=== PATIENT | male | born 1940 | race Caucasian/White ===

== ENCOUNTER 2025-02-16 11:04 | Inpatient (IN) ==
--- NOTE | 2025-02-16 12:14 | XRay Report ---
XR chest 2V PA/lateral CLINICAL HISTORY: Dyspnea COMPARISON STUDY: 11/27/2024 FINDINGS: There are postsurgical changes of midline sternotomy. The heart remains enlarged. 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 There is no focal pulmonary consolid ation. There is slight improvement in interstitial thickening suggesting mild improvement in the prev iously identified interstitial edema. IMPRESSION: Mild improvement in the previously described mild congestive failure. No evidence of foc al pulmonary consolidation. ACT 112: Negative or not required by law. Electronically signed by: Rich Chau M.D. 02/16/2025 12:12 PM
[2025-02-16 12:34] LABS: Base Excess VBG 4.5 mEq/L; HCO3 VBG 29 mmol/L; Oxygen Saturation VBG 89.3 %; PCO2 VBG 43 mmHg (38-50); PO2 VBG 56 mmHg; pH VBG 7.44 (7.36-7.41)
[2025-02-16 12:39] LABS: Hematocrit (blood only) 27.0 % (42.0-52.0); Hemoglobin 8.5 g/dl (14.0-18.0); Mean Corpuscular Hemoglobin 28.4 pg (25.0-34.0); Mean Corpuscular Volume 90.3 fL (80.0-100.0); Platelet Count 293 K/uL (130-400); RDW Standard Deviation 47.8 fL (36.4-46.3); Red Blood Count 2.99 M/uL (4.70-6.10); White Blood Count 25.95 K/ul (4.8-10.8)
[2025-02-16 12:41] LABS: Chlamydia pneumoniae PCR Not Detected (NotDetected); Coronavirus 229E PCR Not Detected (NotDetected); Coronavirus CoV-2 (COVID19)PCR Not Detected (NotDetected); Coronavirus HKU1 PCR Not Detected (NotDetected); Coronavirus NL63 PCR Not Detected (NotDetected); Coronavirus OC43PCR Not Detected (NotDetected); Human Metapneumovirus PCR Not Detected (NotDetected); Parainfluenza Virus 1 PCR Not Detected (NotDetected); Parainfluenza Virus 2 PCR Not Detected (NotDetected); Parainfluenza Virus 3 PCR Not Detected (NotDetected); Parainfluenza Virus 4 PCR Not Detected (NotDetected); Respiratory Syncytial VirusPCR Not Detected (NotDetected); Rhinovirus/Enterovirus PCR Not Detected (NotDetected)
--- NOTE | 2025-02-16 12:53 | Emergency Department Note ---
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 Patient is accompanied by EMS and who provide additional history. Per EMS, the patient lives at home with his . He they were called to the house today for increased shortness of breath. Patient reports increased shortness of breath at rest that has been ongoing for the last few weeks. reported a fever today. It was reported that he received 1000 mg of Tylenol prior to arrival. Patient is anticoagulated with Xarelto. He has a history of heart failure. He wears 2 to 3 L of low-flow nasal cannula at baseline. notes that she has had to increase this over the weekend secondary to worsening dyspnea. They deny fever or chills. No cough or congestion. Denies chest pain or palpitations. No shortness of breath. They deny abdominal pain, nausea and vomiting. No urinary complaints. No recent changes in bowel movements. Patient denies recent changes in medications or OTC supplements. Patient offers no other complaints, today. ADDITIONAL HISTORY OBTAINED: Per HPI Chronic Medical/Social Conditions Affecting Care: Per HPI PAST MEDICAL HISTORY: See Below PAST SURGICAL HISTORY: See Below FAMILY HISTORY: See Below SOCIAL HISTORY: See Below HOME MEDICATIONS: See Below ALLERGIES: See Below VITALS: See Below PHYSICAL EXAMINATION: GENERAL: Sitting up in bed, alert, well appearing, well nourished, no distress, non-toxic EYE EXAM: normal conjunctiva. PERRL and EOM's grossly intact. OROPHARYNX: no exudate, no erythema, lips, buccal mucosa, and tongue normal and mucous membranes are moist NECK: supple, no nuchal rigidity, no adenopathy, non-tender LUNGS: Clear to auscultation. Normal chest wall mechanics HEART: no murmurs, regular rate, regular rhythm ABDOMEN: abdomen soft, non-tender, no masses, no rebound or guarding. BACK: Back is symmetrical on inspection and there is no deformity, no midline tenderness, no CVA tenderness. SKIN: no rashes and no bruising UPPER EXTREMITIES: upper extremities are grossly normal. LOWER EXTREMITIES: 1+ KENISHA NEURO EXAM: Normal sensorium, GCS 15, normal speech, no gross weakness of arms, no gross weakness of legs. MEDICAL DECISION MAKING: Differential diagnoses includes but not limited to ACS, unstable angina, dysrhythmia, PNA, hypervolemia/pulmonary edema, CHF exacerbation, COPD exacerbation, PE, pneumothorax, pericardial effusion, cardiac tamponade, anxiety/psychogenic, viral URI, sepsis, bacteremia, complicated UTI, electrolyte derangements, dehydration In summary, this is a 84 year old male who presented with SOB. Differential as above. Nursing notes and pertinent past medical records reviewed. Vital signs reviewed and the patient is afebrile hemodynamically stable. History and presentation revealed patient was recently admitted to [facility] after a procedure for complicated UTI. Does appear he was on IV ceftriaxone and transition to cefpodoxime as an outpatient. Patient has since finished antibiotics. reports that he continues to worsen. He has been more short of breath. He has had intermittent nausea and a few episodes of emesis. Did have a fever over the last 2 days. He has been weak and lethargic. I do suspect he likely has an infection but will need further investigation into potential etiologies of his shortness of breath. His low-flow nasal cannula does not appear new. This appears to be a chronic issue. Patient appears ill on my evaluation but overall he is doing okay. His blood pressures have been intermittently borderline hypotensive. His blood pressure runs low at baseline. He is mentating just fine. Patient is not tachycardic. He actually appears euvolemic to mildly hypervolemic. Will hold off on further IV fluid resuscitation at this time. Patient workup including labs and chest x-ray. Given the fever, I am concerned for sepsis and we will order septic workup. Suspect he could have a urinary source given recent treatment for pyelonephritis with continued symptoms. Diagnostics interpreted by me include EKG and cardiac monitoring as listed below: -Cardiac Monitoring: An order was placed for continuous cardiac monitoring. The monitor shows a rate of 70 (paced) with regular rhythm. -ECG: EKG independently interpreted by me reveals ventricular paced rhythm at [address] segment changes to suggest STEMI. Intervals within normal limits. Patient completed laboratory studies and imaging. Results independently interpreted by me are worsening leukocytosis and anemia. Kidney function has worsening. Pseudohyponatremia 2/2 hyperglycemia. No other significant electrolyte derangements. BNP elevated secondary to mild hypervolemia. Troponin leak present without symptoms of angina or EKG changes. The patient was managed with IV CTX has he has +UA and increased leukocytosis as well as worsening kidney fxn. Ultimately, the decision was made to admit the patient for Sepsis secondary to complicated UTI with worsening kidney dysfunction. I discussed the case with the hospitalist service via telephone/TigerText and they are agreeable to admit the patient to their services. Based on the above, including the patient's age, coexisting illnesses, labs, imaging, and exam findings the decision to treat as an inpatient. I discussed the patient with the hospitalist team who recommended admission to their services. They received the medications, treatments, interventions indicated above and their condition remained stable. I discussed my findings with the patient and their family and they understand and agree with the treatment plan. All patient / family questions were answered to their satisfaction. Consults/Care Managements Discussions: Per MDM ER treatment provided: See above Procedures:none Critical Care: None The chart was completed utilizing [employer] Speech voice recognition software. Grammatical errors, random word insertions, pronoun errors, and incomplete sentences are an occasional consequence of this system due to software limitations, ambient noise, and hardware issues. Any formal questions or concerns about the content, text, or information contained within the body of this dictation should be directly addressed to the physician for clarification. Past Med/Surg History Problem List (Updated 02/19/25 @ 19:17 by Jimmy Mcgovern DO) Pseudohyponatremia (Acute) Complicated urinary tract infection (Acute) Sepsis (Acute) Pulmonary interstitial fibrosis History of pacemaker E. coli UTI E coli bacteremia Chronic hypoxic respiratory failure, on home oxygen therapy Acute kidney injury (CT) with acute tubular necrosis (ATN) Severe sepsis with acute organ dysfunction due to Gram negative bacteria Pyelonephritis (Acute) HLD (hyperlipidemia) HTN (hypertension) CKD stage 3a, GFR 45-59 ml/min DM type 2 (diabetes mellitus, type 2) Chronic hypoxemic respiratory failure S/P cardiac pacemaker procedure Persistent atrial fibrillation Chronic HFrEF (heart failure with reduced ejection fraction) Severe sepsis Social History Smoking Status: Former smoker Tobacco Type: Cigarettes Hx Alcohol Use: No Hx Substance Use: No Preferred Language: Tongan Communication Ability: Effective Beliefs That Will Affect Care: [employer] Beliefs: [facility] Feels Safe at Home: Yes Assistive Devices: Oxygen - Continuous and Walker Allergies Allergies Allergy/AdvReac Type Severity Reaction Status Date / Time No Known Allergies Allergy Unknown Verified 01/23/07 15:09 Cephalosporins AdvReac Unknown N&V Verified 08/19/09 02:30 Home Meds Home Medications Medication Instructions Recorded Confirmed albuterol sulfate 90 mcg/actuation 2 puff inhalation Q6H PRN sob 02/16/25 02/16/25 aerosol inhaler buprenorphine 20 mcg/hour weekly 1 patch topical WK 02/16/25 02/16/25 transdermal patch duloxetine 60 mg capsule,delayed 60 mg PO DAILY 02/16/25 02/16/25 release ezetimibe 10 mg-simvastatin 40 mg 1 tab PO DAILY 02/16/25 02/16/25 tablet furosemide 40 mg tablet 40 mg PO DAILY 02/16/25 02/16/25 lorazepam 1 mg tablet 1 mg PO TID PRN anxiety 02/16/25 02/16/25 metformin 500 mg tablet,extended 1,000 mg PO DAILY 02/16/25 02/16/25 release 24 hr metoprolol succinate 25 mg 25 mg PO DAILY 02/16/25 02/16/25 tablet,extended release 24 hr nitroglycerin 0.4 mg sublingual 0.4 mg sublingual DIRECTED PRN 02/16/25 02/16/25 tablet Chest Pain omeprazole 40 mg capsule,delayed 40 mg PO BID 02/16/25 02/16/25 release rivaroxaban 20 mg tablet (Xarelto) 20 mg PO DAILY 02/16/25 02/16/25 sacubitril 24 mg-valsartan 26 mg 0 tab PO BID 02/16/25 02/16/25 tablet (Entresto) simvastatin 40 mg tablet 40 mg PO DAILY 02/16/25 02/16/25 tamsulosin 0.4 mg capsule 0.4 mg PO DAILY 02/16/25 02/16/25 aspirin 81 mg capsule 81 mg PO DAILY 02/17/25 02/17/25 Results & Data (ED) Vital Signs Vital Signs - 24 hr 02/16/25 11:09 02/16/25 11:11 02/16/25 11:13 Temperature 37.0 C Temperature Source Oral Pulse Rate 70 71 Pulse Rate [Apical] Pulse Rate from SpO2 Sensor Respiratory Rate 13 Respiratory Effort / Characteristics Non-Labored Spontaneous Respiratory Depth Normal Respiratory Pattern Regular Blood Pressure 116/56 L 116/56 L Blood Pressure [Right Arm] Blood Pressure Mean 99 76 Blood Pressure Mean [Right Arm] Blood Pressure Position Semi-fowlers Blood Pressure Position [Right Arm] Pulse Oximetry 97 Oxygen Delivery Method Nasal Cannula Oxygen Flow Rate 2 Sepsis Recent Fever Within 48 Hours Yes Sepsis New/Unexplained Change in Mental Status No Sepsis Action Taken by Nursing No Action Required 02/16/25 11:13 02/16/25 11:13 02/16/25 11:13 Temperature Temperature Source Pulse Rate Pulse Rate [Apical] Pulse Rate from SpO2 Sensor Respiratory Rate Respiratory Effort / Characteristics Respiratory Depth Respiratory Pattern Blood Pressure 86/53 L 86/53 L Blood Pressure [Right Arm] Blood Pressure Mean 59 59 Blood Pressure Mean [Right Arm] Blood Pressure Position Blood Pressure Position [Right Arm] Pulse Oximetry 98 Oxygen Delivery Method Nasal Cannula Oxygen Flow Rate 2 Sepsis Recent Fever Within 48 Hours Sepsis New/Unexplained Change in Mental Status Sepsis Action Taken by Nursing 02/16/25 11:13 02/16/25 11:15 02/16/25 11:17 Temperature Temperature Source Pulse Rate 70 Pulse Rate [Apical] Pulse Rate from SpO2 Sensor 70 Respiratory Rate 14 Respiratory Effort / Characteristics Respiratory Depth Respiratory Pattern Blood Pressure 86/53 L 108/69 Blood Pressure [Right Arm] Blood Pressure Mean 59 72 Blood Pressure Mean [Right Arm] Blood Pressure Position Blood Pressure Position [Right Arm] Pulse Oximetry 98 Oxygen Delivery Method Oxygen Flow Rate Sepsis Recent Fever Within 48 Hours Sepsis New/Unexplained Change in Mental Status Sepsis Action Taken by Nursing 02/16/25 11:21 02/16/25 11:21 02/16/25 11:21 Temperature Temperature Source Pulse Rate 70 70 Pulse Rate [Apical] 70 Pulse Rate from SpO2 Sensor 71 Respiratory Rate 12 16 21 Respiratory Effort / Characteristics Non-Labored Spontaneous Respiratory Depth Normal Respiratory Pattern Regular Blood Pressure Blood Pressure [Right Arm] 108/69 Blood Pressure Mean Blood Pressure Mean [Right Arm] 82 Blood Pressure Position Blood Pressure Position [Right Arm] Semi-fowlers Pulse Oximetry 98 98 98 Oxygen Delivery Method Nasal Cannula Nasal Cannula Oxygen Flow Rate 2 2 Sepsis Recent Fever Within 48 Hours Sepsis New/Unexplained Change in Mental Status Sepsis Action Taken by Nursing 02/16/25 12:02 02/16/25 12:02 02/16/25 12:03 Temperature Temperature Source Pulse Rate 70 Pulse Rate [Apical] Pulse Rate from SpO2 Sensor 70 Respiratory Rate 19 Respiratory Effort / Characteristics Respiratory Depth Respiratory Pattern Blood Pressure 106/51 L 106/51 L Blood Pressure [Right Arm] Blood Pressure Mean 88 88 Blood Pressure Mean [Right Arm] Blood Pressure Position Blood Pressure Position [Right Arm] Pulse Oximetry 100 Oxygen Delivery Method Oxygen Flow Rate Sepsis Recent Fever Within 48 Hours Sepsis New/Unexplained Change in Mental Status Sepsis Action Taken by Nursing 02/16/25 12:21 02/16/25 12:33 02/16/25 12:34 Temperature Temperature Source Pulse Rate 70 70 Pulse Rate [Apical] Pulse Rate from SpO2 Sensor 70 Respiratory Rate 16 19 Respiratory Effort / Characteristics Respiratory Depth Respiratory Pattern Blood Pressure 100/47 L Blood Pressure [Right Arm] Blood Pressure Mean 68 Blood Pressure Mean [Right Arm] Blood Pressure Position Blood Pressure Position [Right Arm] Pulse Oximetry 99 Oxygen Delivery Method Oxygen Flow Rate Sepsis Recent Fever Within 48 Hours Sepsis New/Unexplained Change in Mental Status Sepsis Action Taken by Nursing 02/16/25 12:45 02/16/25 12:51 02/16/25 13:00 Temperature Temperature Source Pulse Rate 70 70 Pulse Rate [Apical] Pulse Rate from SpO2 Sensor Respiratory Rate 18 18 Respiratory Effort / Characteristics Respiratory Depth Respiratory Pattern Blood Pressure 107/53 L Blood Pressure [Right Arm] Blood Pressure Mean 76 Blood Pressure Mean [Right Arm] Blood Pressure Position Blood Pressure Position [Right Arm] Pulse Oximetry Oxygen Delivery Method Oxygen Flow Rate Sepsis Recent Fever Within 48 Hours Sepsis New/Unexplained Change in Mental Status Sepsis Action Taken by Nursing 02/16/25 13:00 02/16/25 13:30 02/16/25 13:42 Temperature Temperature Source Pulse Rate 70 Pulse Rate [Apical] Pulse Rate from SpO2 Sensor Respiratory Rate 21 Respiratory Effort / Characteristics Respiratory Depth Respiratory Pattern Blood Pressure 107/53 L 126/68 Blood Pressure [Right Arm] Blood Pressure Mean 76 84 Blood Pressure Mean [Right Arm] Blood Pressure Position Blood Pressure Position [Right Arm] Pulse Oximetry Oxygen Delivery Method Oxygen Flow Rate Sepsis Recent Fever Within 48 Hours Sepsis New/Unexplained Change in Mental Status Sepsis Action Taken by Nursing 02/16/25 13:45 02/16/25 14:03 02/16/25 14:03 Temperature Temperature Source Pulse Rate 70 Pulse Rate [Apical] Pulse Rate from SpO2 Sensor Respiratory Rate 21 Respiratory Effort / Characteristics Respiratory Depth Respiratory Pattern Blood Pressure 132/62 132/62 Blood Pressure [Right Arm] Blood Pressure Mean 102 102 Blood Pressure Mean [Right Arm] Blood Pressure Position Blood Pressure Position [Right Arm] Pulse Oximetry Oxygen Delivery Method Oxygen Flow Rate Sepsis Recent Fever Within 48 Hours Sepsis New/Unexplained Change in Mental Status Sepsis Action Taken by Nursing 02/16/25 14:03 02/16/25 14:06 02/16/25 14:15 Temperature Temperature Source Pulse Rate 70 70 Pulse Rate [Apical] Pulse Rate from SpO2 Sensor Respiratory Rate 24 21 Respiratory Effort / Characteristics Respiratory Depth Respiratory Pattern Blood Pressure 132/62 Blood Pressure [Right Arm] Blood Pressure Mean 102 Blood Pressure Mean [Right Arm] Blood Pressure Position Blood Pressure Position [Right Arm] Pulse Oximetry Oxygen Delivery Method Oxygen Flow Rate Sepsis Recent Fever Within 48 Hours Sepsis New/Unexplained Change in Mental Status Sepsis Action Taken by Nursing 02/16/25 14:27 02/16/25 14:30 02/16/25 15:01 Temperature Temperature Source Pulse Rate 70 Pulse Rate [Apical] 70 Pulse Rate from SpO2 Sensor Respiratory Rate 14 16 Respiratory Effort / Characteristics Non-Labored Spontaneous Non-Labored Spontaneous Respiratory Depth Normal Respiratory Pattern Regular Blood Pressure Blood Pressure [Right Arm] 133/60 Blood Pressure Mean Blood Pressure Mean [Right Arm] 84 Blood Pressure Position Blood Pressure Position [Right Arm] Semi-fowlers Pulse Oximetry Oxygen Delivery Method Nasal Cannula Oxygen Flow Rate 3 Sepsis Recent Fever Within 48 Hours Sepsis New/Unexplained Change in Mental Status Sepsis Action Taken by Nursing Laboratory Data 02/19/25 06:42 02/19/25 06:42 Lab Results 02/16/25 02/16/25 02/16/25 Range/Units 11:28 12:20 14:00 WBC 25.95 H (4.8-10.8) K/ul RBC 2.99 L (4.70-6.10) M/uL Hgb 8.5 L (14.0-18.0) g/dl Hct 27.0 L (42.0-52.0) % MCV 90.3 (80.0-100.0) fL MCH 28.4 (25.0-34.0) pg MCHC 31.5 L (32.0-36.0) g/dL RDW Std Deviation 47.8 H (36.4-46.3) fL RDW Coeff of Aimee 14.6 H (11.5-14.5) % Plt Count 293 (130-400) K/uL MPV 10.6 (9.4-12.4) fL Immature Gran % (Auto) 0.9 % Neut % (Auto) 87.2 % Lymph % (Auto) 3.4 % [place] % (Auto) 8.1 % Eos % (Auto) 0.1 % Baso % (Auto) 0.3 % Neut # (Auto) 22.61 H (1.40-6.50) K/uL Lymph # (Auto) 0.89 L (1.20-3.40) K/uL [place] # (Auto) 2.11 H (0.11-0.59) K/uL Eos # (Auto) 0.02 (0.00-0.50) K/uL Baso # (Auto) 0.08 (0.00-0.20) K/uL Immature Gran # (Auto) 0.24 H (0.01-0.20) K/uL Toxic Vacuolation 1+ Polychromasia 1+ Basophilic Stippling 1+ PT Cancelled INR Cancelled VBG pH 7.44 H (7.36-7.41) VBG pCO2 43 (38-50) mmHg VBG pO2 56 mmHg VBG HCO3 29 mmol/L VBG O2 Saturation 89.3 % VBG Base Excess 4.5 mEq/L Sodium 134 L (136-145) mmol/L Potassium 4.7 (3.5-5.1) mmol/L Chloride 99 (98-107) mmol/L Carbon Dioxide 29 (21-32) mmol/L Anion Gap 6 (3-11) BUN 27 H (6-23) mg/dl Creatinine 1.81 H (0.6-1.4) mg/dl Est Cr Clr Drug Dosing 31.7 ml/min eGFR 36.87 BUN/Creatinine Ratio 14.9 (10-20) Glucose 161 H (70-99(Fasting)) mg/dl Calcium 9.1 (8.6-10.3) mg/dl Magnesium 1.6 L (1.7-2.4) mg/dl Total Bilirubin 0.6 (0.2-1.0) mg/dl AST 22 (13-39) U/L ALT 12 (7-52) U/L Alkaline Phosphatase 34 (34-104) U/L Troponin I High Sens 33.9 H (0-20) pg/ml B-Natriuretic Peptide 636 H (0-100) pg/ml Total Protein 6.3 (6.0-8.3) gm/dl Albumin 3.4 (3.4-5.0) gm/dl Globulin 2.9 (2.5-4.0) gm/dl Albumin/Globulin Ratio 1.2 (0.9-2) Urine Color Yellow Urine Appearance Turbid A (Clear) Urine pH 7.5 (4.5-7.5) Ur Specific [place] 1.038 H (1.000-1.030) Urine Protein 2+ H (Negative) Urine Glucose (UA) Negative (Negative) Urine Ketones Trace H (Negative) Urine Blood 3+ H (Negative) Urine Nitrite Positive A (Negative) Urine Bilirubin Negative (Negative) Urine Urobilinogen Negative (Negative) Ur Leukocyte Esterase 3+ H (Negative) Urine WBC (Auto) >50 H (0-5) /hpf Urine RBC (Auto) >20 H (0-2) /hpf U Hyaline Cast (Auto) 6-10 H (0-2) /lpf U Epithel Cells (Auto) 0-2 (0-2) /hpf Urine Bacteria (Auto) 4+ H (None Seen) Urine Comment A.calcoaceticus-baumannii cmplx PCR Adenovirus (PCR) Not Detected (NotDetected) Bacteroides fragilis B. pertussis DNA (PCR) Not Detected (NotDetected) B.parapertussis DNA PCR Not Detected (NotDetected) Teagan albicans (PCR) Teagan auris (PCR) C. glabrata (PCR) C. krusei (PCR) C. parapsilosis (PCR) C. tropicalis (PCR) C. pneumoniae DNA (PCR) Not Detected (NotDetected) Coronavirus OC43 (PCR) Not Detected (NotDetected) Coronavirus HKU1 (PCR) Not Detected (NotDetected) Coronavirus 229E (PCR) Not Detected (NotDetected) SARS-CoV-2 (PCR) Not Detected (NotDetected) Coronavirus NL63 (PCR) Not Detected (NotDetected) C. neoform/gattii (PCR) Enterobacterales (PCR) (NotDetected) E. cloacae complex PCR Enterococc faecalis PCR Enterococc faecium PCR E. coli (PCR) H. influenzae (PCR) Human Metapneumovir PCR Not Detected (NotDetected) Influenza Type A (PCR) Not Detected (NotDetected) Influenza Type B (PCR) Not Detected (NotDetected) Klebsiella aerogenes (PCR) Klebsiella oxytoca PCR K. pneumoniae group (PCR) List. monocytogenes PCR M. pneumoniae (PCR) Not Detected (NotDetected) N. meningitidis (PCR) Parainfluenza 1 (PCR) Not Detected (NotDetected) Parainfluenza 2 (PCR) Not Detected (NotDetected) Parainfluenza 3 (PCR) Not Detected (NotDetected) Parainfluenza 4 (PCR) Not Detected (NotDetected) Proteus species (PCR) (NotDetected) RSV (PCR) Not Detected (NotDetected) Entero/Rhino (PCR) Not Detected (NotDetected) Salmonella spp. (PCR) Serratia marcescens PCR Staphylococcus sp PCR Staph aureus (PCR) mecA/C & MREJ Resist Gene mecA/C-Methicil Resis Gene mcr-1 Colistin Res Gene PCR Staph epidermidis (PCR) Staph lugdunensis PCR S. maltophilia (PCR) Streptococcus sp PCR Strep agalactiae (PCR) Strep pneumoniae (PCR) S. pyogenes (PCR) P. aeruginosa (PCR) Joanie/B-Vanco Res Genes blaIMP Car res Gene PCR (NotDetected) KPC-Carbap Res Gene PCR (NotDetected) blaNDM Car Res Gene PCR (NotDetected) OXA-48 Carbapenem Resis Gene (PCR) (NotDetected) blaVIM Car Res Gene PCR (NotDetected) CTX-M Gene Resistance (PCR) (NotDetected) Bld Cult ID Panel PCR (NotDetected) Bld Cult ID PCR Com 02/16/25 02/16/25 02/16/25 Range/Units 14:15 14:15 14:15 WBC (4.8-10.8) K/ul RBC (4.70-6.10) M/uL Hgb (14.0-18.0) g/dl Hct (42.0-52.0) % MCV (80.0-100.0) fL MCH (25.0-34.0) pg MCHC (32.0-36.0) g/dL RDW Std Deviation (36.4-46.3) fL RDW Coeff of Aimee (11.5-14.5) % Plt Count (130-400) K/uL MPV (9.4-12.4) fL Immature Gran % (Auto) % Neut % (Auto) % Lymph % (Auto) % [place] % (Auto) % Eos % (Auto) % Baso % (Auto) % Neut # (Auto) (1.40-6.50) K/uL Lymph # (Auto) (1.20-3.40) K/uL [place] # (Auto) (0.11-0.59) K/uL Eos # (Auto) (0.00-0.50) K/uL Baso # (Auto) (0.00-0.20) K/uL Immature Gran # (Auto) (0.01-0.20) K/uL Toxic Vacuolation Polychromasia Basophilic Stippling PT 16.0 H INR 1.5 H VBG pH (7.36-7.41) VBG pCO2 (38-50) mmHg VBG pO2 mmHg VBG HCO3 mmol/L VBG O2 Saturation % VBG Base Excess mEq/L Sodium (136-145) mmol/L Potassium (3.5-5.1) mmol/L Chloride (98-107) mmol/L Carbon Dioxide (21-32) mmol/L Anion Gap (3-11) BUN (6-23) mg/dl Creatinine (0.6-1.4) mg/dl Est Cr Clr Drug Dosing ml/min eGFR BUN/Creatinine Ratio (10-20) Glucose (70-99(Fasting)) mg/dl Calcium (8.6-10.3) mg/dl Magnesium (1.7-2.4) mg/dl Total Bilirubin (0.2-1.0) mg/dl AST (13-39) U/L ALT (7-52) U/L Alkaline Phosphatase (34-104) U/L Troponin I High Sens 39.2 H (0-20) pg/ml B-Natriuretic Peptide (0-100) pg/ml Total Protein (6.0-8.3) gm/dl Albumin (3.4-5.0) gm/dl Globulin (2.5-4.0) gm/dl Albumin/Globulin Ratio (0.9-2) Urine Color Urine Appearance (Clear) Urine pH (4.5-7.5) Ur Specific [place] (1.000-1.030) Urine Protein (Negative) Urine Glucose (UA) (Negative) Urine Ketones (Negative) Urine Blood (Negative) Urine Nitrite (Negative) Urine Bilirubin (Negative) Urine Urobilinogen (Negative) Ur Leukocyte Esterase (Negative) Urine WBC (Auto) (0-5) /hpf Urine RBC (Auto) (0-2) /hpf U Hyaline Cast (Auto) (0-2) /lpf U Epithel Cells (Auto) (0-2) /hpf Urine Bacteria (Auto) (None Seen) Urine Comment A.calcoaceticus-baumannii cmplx PCR Cancelled Adenovirus (PCR) (NotDetected) Bacteroides fragilis Cancelled B. pertussis DNA (PCR) (NotDetected) B.parapertussis DNA PCR (NotDetected) Teagan albicans (PCR) Cancelled Teagan auris (PCR) Cancelled C. glabrata (PCR) Cancelled C. krusei (PCR) Cancelled C. parapsilosis (PCR) Cancelled C. tropicalis (PCR) Cancelled C. pneumoniae DNA (PCR) (NotDetected) Coronavirus OC43 (PCR) (NotDetected) Coronavirus HKU1 (PCR) (NotDetected) Coronavirus 229E (PCR) (NotDetected) SARS-CoV-2 (PCR) (NotDetected) Coronavirus NL63 (PCR) (NotDetected) C. neoform/gattii (PCR) Cancelled Enterobacterales (PCR) DETECTED A Cancelled (NotDetected) E. cloacae complex PCR Cancelled Enterococc faecalis PCR Cancelled Enterococc faecium PCR Cancelled E. coli (PCR) Cancelled H. influenzae (PCR) Cancelled Human Metapneumovir PCR (NotDetected) Influenza Type A (PCR) (NotDetected) Influenza Type B (PCR) (NotDetected) Klebsiella aerogenes (PCR) Cancelled Klebsiella oxytoca PCR Cancelled K. pneumoniae group (PCR) Cancelled List. monocytogenes PCR Cancelled M. pneumoniae (PCR) (NotDetected) N. meningitidis (PCR) Cancelled Parainfluenza 1 (PCR) (NotDetected) Parainfluenza 2 (PCR) (NotDetected) Parainfluenza 3 (PCR) (NotDetected) Parainfluenza 4 (PCR) (NotDetected) Proteus species (PCR) DETECTED A Cancelled (NotDetected) RSV (PCR) (NotDetected) Entero/Rhino (PCR) (NotDetected) Salmonella spp. (PCR) Cancelled Serratia marcescens PCR Cancelled Staphylococcus sp PCR Cancelled Staph aureus (PCR) Cancelled mecA/C & MREJ Resist Gene Cancelled mecA/C-Methicil Resis Gene Cancelled mcr-1 Colistin Res Gene PCR Cancelled Staph epidermidis (PCR) Cancelled Staph lugdunensis PCR Cancelled S. maltophilia (PCR) Cancelled Streptococcus sp PCR Cancelled Strep agalactiae (PCR) Cancelled Strep pneumoniae (PCR) Cancelled S. pyogenes (PCR) Cancelled P. aeruginosa (PCR) Cancelled Joanie/B-Vanco Res Genes Cancelled blaIMP Car res Gene PCR Not Detected (NotDetected) KPC-Carbap Res Gene PCR (NotDetected) blaNDM Car Res Gene PCR (NotDetected) OXA-48 Carbapenem Resis Gene (PCR) (NotDetected) blaVIM Car Res Gene PCR (NotDetected) CTX-M Gene Resistance (PCR) (NotDetected) Bld Cult ID Panel PCR (NotDetected) Bld Cult ID PCR Com 02/16/25 02/16/25 02/16/25 Range/Units 14:15 14:15 14:15 WBC (4.8-10.8) K/ul RBC (4.70-6.10) M/uL Hgb (14.0-18.0) g/dl Hct (42.0-52.0) % MCV (80.0-100.0) fL MCH (25.0-34.0) pg MCHC (32.0-36.0) g/dL RDW Std Deviation (36.4-46.3) fL RDW Coeff of Aimee (11.5-14.5) % Plt Count (130-400) K/uL MPV (9.4-12.4) fL Immature Gran % (Auto) % Neut % (Auto) % Lymph % (Auto) % [place] % (Auto) % Eos % (Auto) % Baso % (Auto) % Neut # (Auto) (1.40-6.50) K/uL Lymph # (Auto) (1.20-3.40) K/uL [place] # (Auto) (0.11-0.59) K/uL Eos # (Auto) (0.00-0.50) K/uL Baso # (Auto) (0.00-0.20) K/uL Immature Gran # (Auto) (0.01-0.20) K/uL Toxic Vacuolation Polychromasia Basophilic Stippling PT INR VBG pH (7.36-7.41) VBG pCO2 (38-50) mmHg VBG pO2 mmHg VBG HCO3 mmol/L VBG O2 Saturation % VBG Base Excess mEq/L Sodium (136-145) mmol/L Potassium (3.5-5.1) mmol/L Chloride (98-107) mmol/L Carbon Dioxide (21-32) mmol/L Anion Gap (3-11) BUN (6-23) mg/dl Creatinine (0.6-1.4) mg/dl Est Cr Clr Drug Dosing ml/min eGFR BUN/Creatinine Ratio (10-20) Glucose (70-99(Fasting)) mg/dl Calcium (8.6-10.3) mg/dl Magnesium (1.7-2.4) mg/dl Total Bilirubin (0.2-1.0) mg/dl AST (13-39) U/L ALT (7-52) U/L Alkaline Phosphatase (34-104) U/L Troponin I High Sens (0-20) pg/ml B-Natriuretic Peptide (0-100) pg/ml Total Protein (6.0-8.3) gm/dl Albumin (3.4-5.0) gm/dl Globulin (2.5-4.0) gm/dl Albumin/Globulin Ratio (0.9-2) Urine Color Urine Appearance (Clear) Urine pH (4.5-7.5) Ur Specific Daggett (1.000-1.030) Urine Protein (Negative) Urine Glucose (UA) (Negative) Urine Ketones (Negative) Urine Blood (Negative) Urine Nitrite (Negative) Urine Bilirubin (Negative) Urine Urobilinogen (Negative) Ur Leukocyte Esterase (Negative) Urine WBC (Auto) (0-5) /hpf Urine RBC (Auto) (0-2) /hpf U Hyaline Cast (Auto) (0-2) /lpf U Epithel Cells (Auto) (0-2) /hpf Urine Bacteria (Auto) (None Seen) Urine Comment A.calcoaceticus-baumannii cmplx PCR Adenovirus (PCR) (NotDetected) Bacteroides fragilis B. pertussis DNA (PCR) (NotDetected) B.parapertussis DNA PCR (NotDetected) Teagan albicans (PCR) Teagan auris (PCR) C. glabrata (PCR) C. krusei (PCR) C. parapsilosis (PCR) C. tropicalis (PCR) C. pneumoniae DNA (PCR) (NotDetected) Coronavirus OC43 (PCR) (NotDetected) Coronavirus HKU1 (PCR) (NotDetected) Coronavirus 229E (PCR) (NotDetected) SARS-CoV-2 (PCR) (NotDetected) Coronavirus NL63 (PCR) (NotDetected) C. neoform/gattii (PCR) Enterobacterales (PCR) (NotDetected) E. cloacae complex PCR Enterococc faecalis PCR Enterococc faecium PCR E. coli (PCR) H. influenzae (PCR) Human Metapneumovir PCR (NotDetected) Influenza Type A (PCR) (NotDetected) Influenza Type B (PCR) (NotDetected) Klebsiella aerogenes (PCR) Klebsiella oxytoca PCR K. pneumoniae group (PCR) List. monocytogenes PCR M. pneumoniae (PCR) (NotDetected) N. meningitidis (PCR) Parainfluenza 1 (PCR) (NotDetected) Parainfluenza 2 (PCR) (NotDetected) Parainfluenza 3 (PCR) (NotDetected) Parainfluenza 4 (PCR) (NotDetected) Proteus species (PCR) (NotDetected) RSV (PCR) (NotDetected) Entero/Rhino (PCR) (NotDetected) Salmonella spp. (PCR) Serratia marcescens PCR Staphylococcus sp PCR Staph aureus (PCR) mecA/C & MREJ Resist Gene mecA/C-Methicil Resis Gene mcr-1 Colistin Res Gene PCR Staph epidermidis (PCR) Staph lugdunensis PCR S. maltophilia (PCR) Streptococcus sp PCR Strep agalactiae (PCR) Strep pneumoniae (PCR) S. pyogenes (PCR) P. aeruginosa (PCR) Joanie/B-Vanco Res Genes blaIMP Car res Gene PCR Cancelled (NotDetected) KPC-Carbap Res Gene PCR Not Detected Cancelled (NotDetected) blaNDM Car Res Gene PCR Not Detected Cancelled (NotDetected) OXA-48 Carbapenem Resis Gene (PCR) Not Detected (NotDetected) blaVIM Car Res Gene PCR (NotDetected) CTX-M Gene Resistance (PCR) (NotDetected) Bld Cult ID Panel PCR (NotDetected) Bld Cult ID PCR Com 02/16/25 02/16/25 02/16/25 Range/Units 14:15 14:15 14:15 WBC (4.8-10.8) K/ul RBC (4.70-6.10) M/uL Hgb (14.0-18.0) g/dl Hct (42.0-52.0) % MCV (80.0-100.0) fL MCH (25.0-34.0) pg MCHC (32.0-36.0) g/dL RDW Std Deviation (36.4-46.3) fL RDW Coeff of Aimee (11.5-14.5) % Plt Count (130-400) K/uL MPV (9.4-12.4) fL Immature Gran % (Auto) % Neut % (Auto) % Lymph % (Auto) % [place] % (Auto) % Eos % (Auto) % Baso % (Auto) % Neut # (Auto) (1.40-6.50) K/uL Lymph # (Auto) (1.20-3.40) K/uL [place] # (Auto) (0.11-0.59) K/uL Eos # (Auto) (0.00-0.50) K/uL Baso # (Auto) (0.00-0.20) K/uL Immature Gran # (Auto) (0.01-0.20) K/uL Toxic Vacuolation Polychromasia Basophilic Stippling PT INR VBG pH (7.36-7.41) VBG pCO2 (38-50) mmHg VBG pO2 mmHg VBG HCO3 mmol/L VBG O2 Saturation % VBG Base Excess mEq/L Sodium (136-145) mmol/L Potassium (3.5-5.1) mmol/L Chloride (98-107) mmol/L Carbon Dioxide (21-32) mmol/L Anion Gap (3-11) BUN (6-23) mg/dl Creatinine (0.6-1.4) mg/dl Est Cr Clr Drug Dosing ml/min eGFR BUN/Creatinine Ratio (10-20) Glucose (70-99(Fasting)) mg/dl Calcium (8.6-10.3) mg/dl Magnesium (1.7-2.4) mg/dl Total Bilirubin (0.2-1.0) mg/dl AST (13-39) U/L ALT (7-52) U/L Alkaline Phosphatase (34-104) U/L Troponin I High Sens (0-20) pg/ml B-Natriuretic Peptide (0-100) pg/ml Total Protein (6.0-8.3) gm/dl Albumin (3.4-5.0) gm/dl Globulin (2.5-4.0) gm/dl Albumin/Globulin Ratio (0.9-2) Urine Color Urine Appearance (Clear) Urine pH (4.5-7.5) Ur Specific [place] (1.000-1.030) Urine Protein (Negative) Urine Glucose (UA) (Negative) Urine Ketones (Negative) Urine Blood (Negative) Urine Nitrite (Negative) Urine Bilirubin (Negative) Urine Urobilinogen (Negative) Ur Leukocyte Esterase (Negative) Urine WBC (Auto) (0-5) /hpf Urine RBC (Auto) (0-2) /hpf U Hyaline Cast (Auto) (0-2) /lpf U Epithel Cells (Auto) (0-2) /hpf Urine Bacteria (Auto) (None Seen) Urine Comment A.calcoaceticus-baumannii cmplx PCR Adenovirus (PCR) (NotDetected) Bacteroides fragilis B. pertussis DNA (PCR) (NotDetected) B.parapertussis DNA PCR (NotDetected) Teagan albicans (PCR) Teagan auris (PCR) C. glabrata (PCR) C. krusei (PCR) C. parapsilosis (PCR) C. tropicalis (PCR) C. pneumoniae DNA (PCR) (NotDetected) Coronavirus OC43 (PCR) (NotDetected) Coronavirus HKU1 (PCR) (NotDetected) Coronavirus 229E (PCR) (NotDetected) SARS-CoV-2 (PCR) (NotDetected) Coronavirus NL63 (PCR) (NotDetected) C. neoform/gattii (PCR) Enterobacterales (PCR) (NotDetected) E. cloacae complex PCR Enterococc faecalis PCR Enterococc faecium PCR E. coli (PCR) H. influenzae (PCR) Human Metapneumovir PCR (NotDetected) Influenza Type A (PCR) (NotDetected) Influenza Type B (PCR) (NotDetected) Klebsiella aerogenes (PCR) Klebsiella oxytoca PCR K. pneumoniae group (PCR) List. monocytogenes PCR M. pneumoniae (PCR) (NotDetected) N. meningitidis (PCR) Parainfluenza 1 (PCR) (NotDetected) Parainfluenza 2 (PCR) (NotDetected) Parainfluenza 3 (PCR) (NotDetected) Parainfluenza 4 (PCR) (NotDetected) Proteus species (PCR) (NotDetected) RSV (PCR) (NotDetected) Entero/Rhino (PCR) (NotDetected) Salmonella spp. (PCR) Serratia marcescens PCR Staphylococcus sp PCR Staph aureus (PCR) mecA/C & MREJ Resist Gene mecA/C-Methicil Resis Gene mcr-1 Colistin Res Gene PCR Staph epidermidis (PCR) Staph lugdunensis PCR S. maltophilia (PCR) Streptococcus sp PCR Strep agalactiae (PCR) Strep pneumoniae (PCR) S. pyogenes (PCR) P. aeruginosa (PCR) Joanie/B-Vanco Res Genes blaIMP Car res Gene PCR (NotDetected) KPC-Carbap Res Gene PCR (NotDetected) blaNDM Car Res Gene PCR (NotDetected) OXA-48 Carbapenem Resis Gene (PCR) Cancelled (NotDetected) blaVIM Car Res Gene PCR Not Detected Cancelled (NotDetected) CTX-M Gene Resistance (PCR) Not Detected Cancelled (NotDetected) Bld Cult ID Panel PCR See PCR Comment (NotDetected) Bld Cult ID PCR Com 02/16/25 Range/Units 14:15 WBC (4.8-10.8) K/ul RBC (4.70-6.10) M/uL Hgb (14.0-18.0) g/dl Hct (42.0-52.0) % MCV (80.0-100.0) fL MCH (25.0-34.0) pg MCHC (32.0-36.0) g/dL RDW Std Deviation (36.4-46.3) fL RDW Coeff of Aimee (11.5-14.5) % Plt Count (130-400) K/uL MPV (9.4-12.4) fL Immature Gran % (Auto) % Neut % (Auto) % Lymph % (Auto) % [place] % (Auto) % Eos % (Auto) % Baso % (Auto) % Neut # (Auto) (1.40-6.50) K/uL Lymph # (Auto) (1.20-3.40) K/uL [place] # (Auto) (0.11-0.59) K/uL Eos # (Auto) (0.00-0.50) K/uL Baso # (Auto) (0.00-0.20) K/uL Immature Gran # (Auto) (0.01-0.20) K/uL Toxic Vacuolation Polychromasia Basophilic Stippling PT INR VBG pH (7.36-7.41) VBG pCO2 (38-50) mmHg VBG pO2 mmHg VBG HCO3 mmol/L VBG O2 Saturation % VBG Base Excess mEq/L Sodium (136-145) mmol/L Potassium (3.5-5.1) mmol/L Chloride (98-107) mmol/L Carbon Dioxide (21-32) mmol/L Anion Gap (3-11) BUN (6-23) mg/dl Creatinine (0.6-1.4) mg/dl Est Cr Clr Drug Dosing ml/min eGFR BUN/Creatinine Ratio (10-20) Glucose (70-99(Fasting)) mg/dl Calcium (8.6-10.3) mg/dl Magnesium (1.7-2.4) mg/dl Total Bilirubin (0.2-1.0) mg/dl AST (13-39) U/L ALT (7-52) U/L Alkaline Phosphatase (34-104) U/L Troponin I High Sens (0-20) pg/ml B-Natriuretic Peptide (0-100) pg/ml Total Protein (6.0-8.3) gm/dl Albumin (3.4-5.0) gm/dl Globulin (2.5-4.0) gm/dl Albumin/Globulin Ratio (0.9-2) Urine Color Urine Appearance (Clear) Urine pH (4.5-7.5) Ur Specific [place] (1.000-1.030) Urine Protein (Negative) Urine Glucose (UA) (Negative) Urine Ketones (Negative) Urine Blood (Negative) Urine Nitrite (Negative) Urine Bilirubin (Negative) Urine Urobilinogen (Negative) Ur Leukocyte Esterase (Negative) Urine WBC (Auto) (0-5) /hpf Urine RBC (Auto) (0-2) /hpf U Hyaline Cast (Auto) (0-2) /lpf U Epithel Cells (Auto) (0-2) /hpf Urine Bacteria (Auto) (None Seen) Urine Comment A.calcoaceticus-baumannii cmplx PCR Adenovirus (PCR) (NotDetected) Bacteroides fragilis B. pertussis DNA (PCR) (NotDetected) B.parapertussis DNA PCR (NotDetected) Teagan albicans (PCR) Teagan auris (PCR) C. glabrata (PCR) C. krusei (PCR) C. parapsilosis (PCR) C. tropicalis (PCR) C. pneumoniae DNA (PCR) (NotDetected) Coronavirus OC43 (PCR) (NotDetected) Coronavirus HKU1 (PCR) (NotDetected) Coronavirus 229E (PCR) (NotDetected) SARS-CoV-2 (PCR) (NotDetected) Coronavirus NL63 (PCR) (NotDetected) C. neoform/gattii (PCR) Enterobacterales (PCR) (NotDetected) E. cloacae complex PCR Enterococc faecalis PCR Enterococc faecium PCR E. coli (PCR) H. influenzae (PCR) Human Metapneumovir PCR (NotDetected) Influenza Type A (PCR) (NotDetected) Influenza Type B (PCR) (NotDetected) Klebsiella aerogenes (PCR) Klebsiella oxytoca PCR K. pneumoniae group (PCR) List. monocytogenes PCR M. pneumoniae (PCR) (NotDetected) N. meningitidis (PCR) Parainfluenza 1 (PCR) (NotDetected) Parainfluenza 2 (PCR) (NotDetected) Parainfluenza 3 (PCR) (NotDetected) Parainfluenza 4 (PCR) (NotDetected) Proteus species (PCR) (NotDetected) RSV (PCR) (NotDetected) Entero/Rhino (PCR) (NotDetected) Salmonella spp. (PCR) Serratia marcescens PCR Staphylococcus sp PCR Staph aureus (PCR) mecA/C & MREJ Resist Gene mecA/C-Methicil Resis Gene mcr-1 Colistin Res Gene PCR Staph epidermidis (PCR) Staph lugdunensis PCR S. maltophilia (PCR) Streptococcus sp PCR Strep agalactiae (PCR) Strep pneumoniae (PCR) S. pyogenes (PCR) P. aeruginosa (PCR) Joanie/B-Vanco Res Genes blaIMP Car res Gene PCR (NotDetected) KPC-Carbap Res Gene PCR (NotDetected) blaNDM Car Res Gene PCR (NotDetected) OXA-48 Carbapenem Resis Gene (PCR) (NotDetected) blaVIM Car Res Gene PCR (NotDetected) CTX-M Gene Resistance (PCR) (NotDetected) Bld Cult ID Panel PCR Cancelled (NotDetected) Bld Cult ID PCR Com Cancelled Administered Medications Acetaminophen (Acetaminophen 325 Mg Tab) 650 mg PO Q4H PRN PRN Reason: pain/fever Stop: 03/18/25 17:37 Last Admin: 02/18/25 22:15 Dose: 650 mg Documented By: Admin: 02/17/25 21:30 Dose: 650 mg Documented By: Admin: 02/17/25 13:18 Dose: 650 mg Documented By: Admin: 02/17/25 03:42 Dose: 650 mg Documented By: Admin: 02/16/25 18:13 Dose: 650 mg Documented By: JESSICA Aspirin (Aspirin 81 Mg Ectab) 81 mg PO DAILY [facility] Stop: 03/19/25 08:59 Last Admin: 02/19/25 08:20 Dose: 81 mg Documented By: Admin: 02/18/25 10:32 Dose: 81 mg Documented By: Admin: 02/17/25 09:04 Dose: 81 mg Documented By: EMELY Buprenorphine HCl (Buprenorphine 10 Mcg/Hr Tdsy) 2 patch TD Q7D@1700 [facility] Stop: 03/19/25 16:59 Last Admin: 02/17/25 18:35 Dose: 2 patch Documented By: KUN Ezetimibe (Ezetimibe 10 Mg Tab) 10 mg PO DAILY [facility] Stop: 03/19/25 08:59 Last Admin: 02/19/25 08:21 Dose: 10 mg Documented By: Admin: 02/18/25 10:32 Dose: 10 mg Documented By: Admin: 02/17/25 15:49 Dose: Not Given Documented By: KUN Sodium Chloride (Nss) 1,000 mls @ 60 mls/hr IV .[id number] [facility] Stop: 02/22/25 10:59 Last Admin: 02/19/25 11:21 Dose: 60 mls/hr Documented By: TAYLOR Ampicillin Sodium/Sulbactam Sodium (Unasyn) 3,000 mg in 100 mls @ 200 mls/hr IV Q8H [facility]; Protocol Stop: 03/05/25 18:59 Last Infusion: 02/19/25 18:54 Dose: Infused Documented By: Admin: 02/19/25 18:24 Dose: 200 mls/hr Documented By: TAYLOR Insulin Aspart (Insulin Aspart Per Unit Charge) 0 units SC ACHS [facility] Stop: 03/18/25 20:59 Last Admin: 02/19/25 17:29 Dose: 4 units Documented By: TAYLOR Co-signed By: YANG Admin: 02/19/25 12:23 Dose: Not Given Documented By: Admin: 02/19/25 08:24 Dose: 5 units Documented By: TAYLOR Co-signed By: CELIA Admin: 02/18/25 20:49 Dose: Not Given Documented By: ABIGAIL Co-signed By: MAXI Admin: 02/18/25 17:53 Dose: 1 units Documented By: KIERSTEN Co-signed By: CHETAN Admin: 02/18/25 13:27 Dose: 1 units Documented By: KIERSTEN Co-signed By: CHETAN Admin: 02/18/25 10:11 Dose: Not Given Documented By: Admin: 02/17/25 21:28 Dose: 1 units Documented By: DEMAR Co-signed By: LUIS Admin: 02/17/25 18:07 Dose: Not Given Documented By: Admin: 02/17/25 13:04 Dose: Not Given Documented By: Admin: 02/17/25 09:12 Dose: 5 units Documented By: EMELY Co-signed By: KUN Admin: 02/16/25 21:22 Dose: 2 units Documented By: LUIS Co-signed By: AMAURY Lorazepam (Lorazepam 1 Mg Tab) 1 mg PO TID PRN PRN Reason: anxiety Stop: 03/18/25 17:37 Last Admin: 02/19/25 14:34 Dose: 1 mg Documented By: Admin: 02/18/25 22:15 Dose: 1 mg Documented By: Admin: 02/17/25 22:19 Dose: 1 mg Documented By: LUIS Metoprolol Succinate (Metoprolol Succ 25mg Ext Rel Tab) 25 mg PO DAILY [facility] Stop: 03/19/25 08:59 Last Admin: 02/19/25 08:20 Dose: 25 mg Documented By: Admin: 02/18/25 10:32 Dose: 25 mg Documented By: Admin: 02/17/25 09:04 Dose: 25 mg Documented By: EMELY Miscellaneous (Remove & Waste Butrans Patch 1 Ea Ea) 1 each N/A Q7D@5440 [facility] Stop: 03/19/25 16:58 Last Admin: 02/17/25 18:06 Dose: Not Given Documented By: KUN Pantoprazole Sodium (Pantoprazole 40 Mg Tab) 40 mg PO BID [facility] Stop: 03/18/25 20:59 Last Admin: 02/19/25 08:21 Dose: 40 mg Documented By: Admin: 02/18/25 20:45 Dose: 40 mg Documented By: Admin: 02/18/25 10:32 Dose: 40 mg Documented By: Admin: 02/17/25 21:30 Dose: 40 mg Documented By: Admin: 02/17/25 09:04 Dose: 40 mg Documented By: Admin: 02/16/25 21:23 Dose: 40 mg Documented By: LUIS Rivaroxaban (Rivaroxaban 15 Mg Tab) 15 mg PO DAILYBD [facility] Stop: 03/19/25 15:29 Last Admin: 02/19/25 16:25 Dose: 15 mg Documented By: Admin: 02/18/25 16:31 Dose: 15 mg Documented By: Admin: 02/17/25 17:36 Dose: 15 mg Documented By: KUN Simvastatin (Simvastatin 40 Mg Tab) 40 mg PO DAILY [facility] Stop: 03/19/25 08:59 Last Admin: 02/19/25 08:20 Dose: 40 mg Documented By: Admin: 02/18/25 10:33 Dose: 40 mg Documented By: Admin: 02/17/25 09:04 Dose: 40 mg Documented By: EMELY Tamsulosin HCl (Tamsulosin Hcl 0.4 Mg Cap) 0.4 mg PO DAILY [facility] Stop: 03/19/25 08:59 Last Admin: 02/19/25 08:21 Dose: 0.4 mg Documented By: Admin: 02/18/25 10:33 Dose: 0.4 mg Documented By: Admin: 02/17/25 09:04 Dose: 0.4 mg Documented By: EMELY Discontinued Medications Albuterol (Albut/Ipratrop 3mg/0.5mg Neb 3 Ml Vial) 3 ml NEB NOW STA; Protocol Stop: 02/17/25 01:01 Last Admin: 02/17/25 01:18 Dose: 3 ml Documented By: LILLIAN Furosemide (Furosemide Inj 20 Mg/2 Ml Vial) 20 mg IV ONE ONE Stop: 02/17/25 01:01 Last Admin: 02/17/25 01:10 Dose: 20 mg Documented By: LUIS Ceftriaxone Sodium (Rocephin) 1,000 mg in 50 mls @ 100 mls/hr IV NOW STA Stop: 02/16/25 14:05 Last Infusion: 02/16/25 14:54 Dose: Infused Documented By: Admin: 02/16/25 14:20 Dose: 100 mls/hr Documented By: EDEL Piperacillin Sod/Tazobactam Sod (Zosyn) 4.5 gm in 100 mls @ 25 mls/hr IV Q8H [facility]; Protocol Stop: 02/23/25 21:14 Last Infusion: 02/17/25 09:30 Dose: Infused Documented By: Admin: 02/17/25 05:00 Dose: 25 mls/hr Documented By: Infusion: 02/17/25 01:56 Dose: Infused Documented By: Admin: 02/16/25 21:55 Dose: 25 mls/hr Documented By: LUIS Piperacillin Sod/Tazobactam Sod (Zosyn) 4.5 gm in 100 mls @ 200 mls/hr IV ONE ONE; Protocol Stop: 02/16/25 15:44 Last Infusion: 02/16/25 18:38 Dose: Infused Documented By: Admin: 02/16/25 16:33 Dose: 200 mls/hr Documented By: HORTENCIA Lactated Ringer's (Lr) 1,000 mls @ 100 mls/hr IV .Q10H [facility] Stop: 02/17/25 00:00 Last Infusion: 02/17/25 03:45 Dose: Infused Documented By: Admin: 02/16/25 17:40 Dose: 100 mls/hr Documented By: JESSICA Magnesium Sulfate/Dextrose (Magnesium Sulfate / D5w) 1 gm in 100 mls @ 50 mls/hr IV Q2H [facility] Stop: 02/16/25 22:59 Last Infusion: 02/17/25 00:00 Dose: Infused Documented By: Admin: 02/16/25 21:56 Dose: 50 mls/hr Documented By: Infusion: 02/16/25 21:50 Dose: Infused Documented By: Admin: 02/16/25 19:50 Dose: 50 mls/hr Documented By: LUIS Lactated Ringer's (Lr) 500 mls @ 999 mls/hr IV .Q31M ONE Stop: 02/16/25 19:08 Last Infusion: 02/16/25 20:29 Dose: Infused Documented By: Admin: 02/16/25 19:48 Dose: 999 mls/hr Documented By: LUIS Vancomycin HCl 1,500 mg/ (Sodium Chloride) 530 mls @ 200 mls/hr IV 1915 ONE Stop: 02/16/25 21:53 Last Infusion: 02/16/25 23:14 Dose: Infused Documented By: Admin: 02/16/25 20:31 Dose: 200 mls/hr Documented By: LUIS Magnesium Sulfate/Dextrose (Magnesium Sulfate / D5w) 1 gm in 100 mls @ 50 mls/hr IV ONE ONE Stop: 02/17/25 02:59 Last Infusion: 02/17/25 03:13 Dose: Infused Documented By: Admin: 02/17/25 01:11 Dose: 50 mls/hr Documented By: LUIS Albumin Human (Albumin 25%) 12.5 gm in 50 mls @ 50 mls/hr IV ONE ONE Stop: 02/17/25 04:08 Last Infusion: 02/17/25 04:45 Dose: Infused Documented By: Admin: 02/17/25 03:42 Dose: 50 mls/hr Documented By: SENA Meropenem 500 mg/ Syringe 10 mls @ 2 mls/min IV Q8H [facility]; Protocol Stop: 02/27/25 07:59 Last Admin: 02/17/25 09:03 Dose: 2 mls/min Documented By: EMELY Piperacillin Sod/Tazobactam Sod (Zosyn) 4.5 gm in 100 mls @ 25 mls/hr IV Q8H [facility]; Protocol Stop: 03/03/25 13:59 Last Infusion: 02/19/25 09:15 Dose: Infused Documented By: Admin: 02/19/25 05:15 Dose: 25 mls/hr Documented By: Infusion: 02/19/25 04:38 Dose: Infused Documented By: Admin: 02/18/25 22:10 Dose: 25 mls/hr Documented By: Infusion: 02/18/25 18:29 Dose: Infused Documented By: Admin: 02/18/25 13:29 Dose: 25 mls/hr Documented By: Infusion: 02/18/25 10:33 Dose: Infused Documented By: Admin: 02/18/25 05:32 Dose: 25 mls/hr Documented By: Infusion: 02/18/25 01:30 Dose: Infused Documented By: Admin: 02/17/25 21:30 Dose: 25 mls/hr Documented By: Infusion: 02/17/25 18:45 Dose: Infused Documented By: Admin: 02/17/25 13:17 Dose: 25 mls/hr Documented By: KUN Sodium Chloride (Nss) 500 mls @ 999 mls/hr IV .Q31M ONE Stop: 02/17/25 17:25 Last Infusion: 02/17/25 19:00 Dose: Infused Documented By: Admin: 02/17/25 18:04 Dose: 999 mls/hr Documented By: KUN Sodium Chloride (Nss) 500 mls @ 80 mls/hr IV .Q6H15M [facility] Stop: 02/18/25 20:44 Last Infusion: 02/18/25 22:19 Dose: Infused Documented By: Admin: 02/18/25 16:28 Dose: 80 mls/hr Documented By: KIERSTEN Ampicillin Sodium/Sulbactam Sodium (Unasyn) 3,000 mg in 100 mls @ 200 mls/hr IV Q12H [facility]; Protocol Stop: 03/05/25 10:59 Last Infusion: 02/19/25 12:09 Dose: Infused Documented By: Admin: 02/19/25 11:24 Dose: 200 mls/hr Documented By: TAYLOR Ioversol (Optiray 320 100ml) 92 ml IV ONCE ONE Stop: 02/16/25 13:11 Last Admin: 02/16/25 13:10 Dose: 92 ml Documented By: MIGUELITO Imaging Data Radiologist's Impression: Chest X-Ray 02/16/25 11:13 XR chest 2V PA/lateral CLINICAL HISTORY: Dyspnea COMPARISON STUDY: 11/27/2024 FINDINGS: There are postsurgical changes of midline sternotomy. The heart remains enlarged. 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 There is no focal pulmonary consolidation. There is slight improvement in interstitial thickening suggesting mild improvement in the previously identified interstitial edema. IMPRESSION: Mild improvement in the previously described mild congestive failure. No evidence of focal pulmonary consolidation. ACT 112: Negative or not required by law. Electronically signed by: Rich Chau M.D. 02/16/2025 12:12 PM Abdomen/Pelvis CT 02/16/25 12:53 CT SCAN OF THE ABDOMEN AND PELVIS WITH IV CONTRAST CLINICAL HISTORY: Sepsis. Recent colonoscopy. COMPARISON STUDY: No priors. TECHNIQUE: Following the IV administration of 92 cc of Optiray 320, CT scan of the abdomen and pelvis is performed from the lung bases to the proximal femora. Images are reviewed in the axial, sagittal, and coronal planes. IV contrast was administered without complication. A dose lowering technique was utilized adhering to the principles of ALARA. There is streak artifact from the arms which could not be elevated above the abdomen. CT DOSE: 1879.69 mGy.cm FINDINGS: Lung bases: The patient is status post midline sternotomy. The heart is enlarged and without pericardial effusion. Pacemaker leads are in place. The coronary arteries are densely calcified. Myocardial fat deposition within the left ventricle suggest prior study. There is a small hiatal hernia. Emphysematous change is suspected. There are trace pleural effusions with dependent scarring/atelectasis. There is no airspace consolidation typical for pneumonia. Liver: The contrast-enhanced liver is normal in size, contour, and attenuation. There is no intrahepatic biliary ductal dilatation. The hepatic veins and portal veins are patent. Gallbladder: Unremarkable. Spleen: Normal in size and attenuation. Pancreas: Mildly atrophic and grossly unremarkable. Adrenal glands: Unremarkable. Kidneys: The contrast enhanced kidneys are normal in size and without hydronephrosis. The kidneys enhance symmetrically. There is asymmetric right- sided perinephric stranding as compared to the left. Abdominal vasculature: There is advanced atherosclerotic calcification and ectasia of the abdominal aorta. Bowel: There is mild colonic diverticulosis without CT evidence of acute diverticulitis. Mild fecal retention is noted throughout the colon. There is no bowel obstruction. A segment of the sigmoid colon is contained within a left inguinal hernia. The appendix is well-visualized and normal. Peritoneum: There is no intraperitoneal free air or abdominal ascites. There is a fat-containing umbilical hernia. Lymphadenopathy: None. Pelvic viscera: The prostate gland is mildly enlarged and heterogeneous. The bladder wall appears thickened/trabeculated indicating chronic outlet obstruction. There are bilateral inguinal hernias, left larger than right. The left inguinal hernia contains a segment of the sigmoid colon. Skeletal structures: The skeletal structures are osteopenic. There is moderate lumbosacral spondylosis. Degenerative change is seen in the sacroiliac joints. No lytic or blastic lesions are seen. IMPRESSION: 1. There is nonspecific asymmetric right-sided perinephric stranding. Correlate with clinical findings and urinalysis. 2. No intraperitoneal free air is seen. 3. Cardiomegaly and cardiac pacemaker. 4. Trace pleural effusions. 5. Left larger than right inguinal hernias. The left inguinal hernia contains a segment of the sigmoid colon. 6. Additional findings as above. ACT 112: Negative or not required by law. Electronically signed by: Merritt Heaton M.D. 02/16/2025 1:32 PM Discharge Plan Visit Data Chief Complaint: Weakness ED Provider: Jimmy Mcgovern Discharge Problem: Pyelonephritis, Sepsis, Complicated urinary tract infection, Pseudohyponatremia Patient Disposition: Admitted As Inpatient Condition: Fair Discharge Instructions Interventions: ED Discharge Assessment Last Done: 02/16/25 16:45
[2025-02-16 12:55] LABS: Basophilic Stippling 1+; Immature Granulocytes # (auto) 0.24 K/uL (0.01-0.20); Immature Granulocytes % (auto) 0.9 %; Polychromasia 1+; Toxic Vacuolation 1+
[2025-02-16 12:58] LABS: Alanine Aminotransferase 12.0 U/L (7-52); Albumin Globulin Ratio 1.2 (0.9-2); Alkaline Phosphatase 34.0 U/L (34-104); Anion Gap 6.0 (3-11); Bilirubin,Total 0.6 mg/dl (0.2-1.0); Blood Urea Nitrogen 27.0 mg/dl (6-23); Calcium 9.1 mg/dl (8.6-10.3); Carbon Dioxide 29.0 mmol/L (21-32); Chloride 99.0 mmol/L (98-107); Creatinine Clr Calc Pharmacy 31.7 ml/min; Globulin 2.9 gm/dl (2.5-4.0); Glucose 161.0 mg/dl (70-99(Fasting)); Magnesium 1.6 mg/dl (1.7-2.4); Potassium 4.7 mmol/L (3.5-5.1); Sodium 134.0 mmol/L (136-145); Total Protein 6.3 gm/dl (6.0-8.3)
[2025-02-16] MEDS: OPTIRAY 320 100ml IV ONE (13:10)
--- NOTE | 2025-02-16 13:34 | CT Scan Report ---
CT SCAN OF THE ABDOMEN AND PELVIS WITH IV CONTRAST CLINICAL HISTORY: Sepsis. Recent colonoscopy. COMPARISON STUDY: No priors. TECHNIQUE: Following the IV administration of 92 cc of Optiray 320, CT scan of the abdomen and pelvi s is performed from the lung bases to the proximal femora. Images are reviewed in the axial, sagittal , and coronal planes. IV contrast was administered without complication. A dose lowering technique wa s utilized adhering to the principles of ALARA. There is streak artifact from the arms which could no t be elevated above the abdomen. CT DOSE: 1879.69 mGy.cm FINDINGS: Lung bases: The patient is status post midline sternotomy. The heart is enlarged and without pericard ial effusion. Pacemaker leads are in place. The coronary arteries are densely calcified. Myocardial f at deposition within the left ventricle suggest prior study. There is a small hiatal hernia. Emphysem atous change is suspected. There are trace pleural effusions with dependent scarring/atelectasis. The re is no airspace consolidation typical for pneumonia. Liver: The contrast-enhanced liver is normal in size, contour, and attenuation. There is no intrahepa tic biliary ductal dilatation. The hepatic veins and portal veins are patent. Gallbladder: Unremarkable. Spleen: Normal in size and attenuation. Pancreas: Mildly atrophic and grossly unremarkable. Adrenal glands: Unremarkable. Kidneys: The contrast enhanced kidneys are normal in size and without hydronephrosis. The kidneys enh ance symmetrically. There is asymmetric right-sided perinephric stranding as compared to the left. Abdominal vasculature: There is advanced atherosclerotic calcification and ectasia of the abdominal a javier. Bowel: There is mild colonic diverticulosis without CT evidence of acute diverticulitis. Mild fecal r etention is noted throughout the colon. There is no bowel obstruction. A segment of the sigmoid colon is contained within a left inguinal hernia. The appendix is well-visualized and normal. Peritoneum: There is no intraperitoneal free air or abdominal ascites. There is a fat-containing umbi lical hernia. Lymphadenopathy: None. Pelvic viscera: The prostate gland is mildly enlarged and heterogeneous. The bladder wall appears thi ckened/trabeculated indicating chronic outlet obstruction. There are bilateral inguinal hernias, left larger than right. The left inguinal hernia contains a segment of the sigmoid colon. Skeletal structures: The skeletal structures are osteopenic. There is moderate lumbosacral spondylosi s. Degenerative change is seen in the sacroiliac joints. No lytic or blastic lesions are seen. IMPRESSION: 1. There is nonspecific asymmetric right-sided perinephric stranding. Correlate with clinical finding s and urinalysis. 2. No intraperitoneal free air is seen. 3. Cardiomegaly and cardiac pacemaker. 4. Trace pleural effusions. 5. Left larger than right inguinal hernias. The left inguinal hernia contains a segment of the sigmoi d colon. 6. Additional findings as above. ACT 112: Negative or not required by law. Electronically signed by: Merritt Heaton M.D. 02/16/2025 1:32 PM
[2025-02-16 14:18] LABS: Appearance Urine Turbid (Clear); Bacteria Urine Automated 4+ (None Seen); Epithelial Cell Urine Auto 0-2 /hpf (0-2); Glucose Urine UA Negative (Negative); RBC Urine Automated >20 /hpf (0-2); WBC Urine Automated >50 /hpf (0-5)
[2025-02-16] MEDS: cefTRIAXone SODIUM 1,000 MG/50 ML BAG IV STA (14:20)
--- NOTE | 2025-02-16 15:09 | History & Physical Report ---
Date of Service February 16, 2025 Assessment & Plan (1) Pyelonephritis: (2) CKD stage 3a, GFR 45-59 ml/min: (3) DM type 2 (diabetes mellitus, type 2): (4) Chronic hypoxemic respiratory failure: (5) S/P cardiac pacemaker procedure: (6) Persistent atrial fibrillation: (7) Chronic HFrEF (heart failure with reduced ejection fraction): (8) Severe sepsis: Plan 84 yo male with pmhx of chronic HFrEF (EF 40-45%), hx of DVT/PE (on xarelto), PAD, persistent atrial fibrillation s/p pacemaker placement, DM Type 2, chronic hypoxemic respiratory failure 2/2 pulmonary fibrosis (3L baseline), CKD stage 3a, HTN, HLD, DM type 2 who presents for lightheadedness, dizziness, nausea, vomiting 2/2 severe sepsis from pyelonephritis. #Severe Sepsis #Right Sided Pyelonephritis -patient had recent treatment for pyelonephritis a few weeks ago which seems to have progressed -severe sepsis due to Ct in setting of leukocytosis, fever, tachypnea with source (pyelonephritis) -has significant heart disease -last urine culture grew salas susceptible Proteus mirabilis, and coag negative staph Plan: -start zosyn, vancomcyin given coag negative staph on prior culture at [facility] -LR at 100cc/hr, gentle hydration given significant HF -f/u urine and blood cultures #Type 2 ND #Chronic HFrEF (EF 40%) -patient appears volume down on examination -elevated troponin in setting of severe sepsis Plan: -continue home meds #Chronic Hypoxemic Respiratory Failure #Pulmonary Fibrosis -on 3L chronically -fluid overload improved on exam #CT on CKD Stage 3a -likely 2/2 volume depletion and severe sepsis Plan: -LR at 100cc/hr, f/u BMP in AM -give additional 500 cc of fluid bolus due to worsening fever #Chronic Normocytic Anemia -likely anemia of chronic disease #Hx of DVT/PE -continue xarelto #Persistent Atrial Fibrillation s/p Pacemaker Placement -continue xarelto #DM Type 2 -SSI ordered I spent a total of 80 minutes in direct patient care, including [id number] time with the patient and/or family, reviewing medical records, ordering and reviewing diagnostic tests, and coordinating care with other healthcare providers. This time includes: history taking, physical examination, medical decision making, counseling, ECG interpretation, imaging interpretation, lab interpretation, orders, and education, excluding time spent in the performance of separately billed services. History of Present Illness Chief Complaint: -lightheadendess, dizziness, nausea, vomiting Primary Care Provider: Damon Benavides MD 84 yo male with pmhx of chronic HFrEF (EF 40-45%), hx of DVT/PE (on xarelto), PAD, persistent atrial fibrillation s/p pacemaker placement, DM Type 2, chronic hypoxemic respiratory failure 2/2 pulmonary fibrosis (3L baseline), CKD stage 3a, HTN, HLD, DM type 2 who presents for lightheadedness, dizziness, nausea, vomiting. Had recent admission for pyelonephritis at [facility] [place], sent home with oral abx. In the ED, WBC of 25, abdominal imaging showing pyelonephritis, elevated creatinine, elevated troponin and BNP, UA very concenring for UTI (no catheter), admitted to medicine for further workup. Patient seen and examined at bedside. Patient not doing well today. Has been having bilateral back pain, lightheaded, dizziness, nausea and vomiting for past few days. Ever since discharge from [facility] he has been getting more lethargic. No burning with urination but increased frequency of urination. Patient barely able to get up this morning. Patient normally does not have nausea or vomiting. Had had some SOB recently but no chest pain. No tobacco use, no drug use, no alcohol use, DNRDNI per patient wishes (discussed directly with patient with family in room) Allergies Allergy/AdvReac Type Severity Reaction Status Date / Time No Known Allergies Allergy Unknown Verified 01/23/07 15:09 Cephalosporins AdvReac Unknown N&V Verified 08/19/09 02:30 Home Medications Medication Instructions Recorded Confirmed Type aspirin 325 mg tablet 0 mg PO DAILY ##0 01/23/07 02/16/25 History albuterol sulfate 90 mcg/actuation 2 puff inhalation Q6H PRN sob 02/16/25 02/16/25 History aerosol inhaler buprenorphine 20 mcg/hour weekly 1 patch topical WK 02/16/25 02/16/25 History transdermal patch duloxetine 60 mg capsule,delayed 60 mg PO DAILY 02/16/25 02/16/25 History release ezetimibe 10 mg-simvastatin 40 mg 1 tab PO DAILY 02/16/25 02/16/25 History tablet furosemide 40 mg tablet 40 mg PO DAILY 02/16/25 02/16/25 History lorazepam 1 mg tablet 1 mg PO TID PRN anxiety 02/16/25 02/16/25 History metformin 500 mg tablet,extended 1,000 mg PO DAILY 02/16/25 02/16/25 History release 24 hr metoprolol succinate 25 mg 25 mg PO DAILY 02/16/25 02/16/25 History tablet,extended release 24 hr nitroglycerin 0.4 mg sublingual 0.4 mg sublingual DIRECTED PRN 02/16/25 02/16/25 History tablet Chest Pain omeprazole 40 mg capsule,delayed 40 mg PO BID 02/16/25 02/16/25 History release rivaroxaban 20 mg tablet (Xarelto) 20 mg PO DAILY 02/16/25 02/16/25 History sacubitril 24 mg-valsartan 26 mg 0 tab PO BID 02/16/25 02/16/25 History tablet (Entresto) simvastatin 40 mg tablet 40 mg PO DAILY 02/16/25 02/16/25 History tamsulosin 0.4 mg capsule 0.4 mg PO DAILY 02/16/25 02/16/25 History Past Med/Surg History Problem List (Updated 02/16/25 @ 18:25 by Santhosh Christine MD) Pyelonephritis HLD (hyperlipidemia) HTN (hypertension) CKD stage 3a, GFR 45-59 ml/min DM type 2 (diabetes mellitus, type 2) Chronic hypoxemic respiratory failure S/P cardiac pacemaker procedure Persistent atrial fibrillation Chronic HFrEF (heart failure with reduced ejection fraction) Severe sepsis Social History Smoking Status: Former smoker Tobacco Type: Cigarettes Preferred Language: Macedonian Feels Safe at Home: Yes Review of Systems Review of Systems: -negative unless listed above Physical Exam Physical Exam: Gen: A&O NAD, appears chronically ill HEENT: NCAT, EOMI, not icteric. External ears normal. No rhinorrhea. Dry mucous membranes. Neck: Supple, full range of motion, no observable masses, No meningeal sign. Lungs: trace rhonchi bilaterally CV: RRR, no edema. Abdomen: mild tenderness to palpation on bilateral flanks, positive CVA tenderness MSK: No joint swelling, no redness. Skin: No rashes, petechiae, lesions. Normal color per patient. Neuro: Normal Gait, Grossly intact. Psych: Appropriate for situation. Results & Data Results & Data Vital Signs (Past 12 Hours) Vital Signs Temp Pulse Pulse Resp BP BP Pulse Ox 02/16/25 14:27 70 14 02/16/25 14:15 70 21 02/16/25 14:06 70 24 02/16/25 14:03 132/62 02/16/25 14:03 132/62 02/16/25 14:03 132/62 02/16/25 13:45 70 21 02/16/25 13:42 70 21 02/16/25 13:30 126/68 02/16/25 13:00 107/53 L 02/16/25 13:00 107/53 L 02/16/25 12:51 70 18 02/16/25 12:45 70 18 02/16/25 12:34 100/47 L 02/16/25 12:33 70 19 99 02/16/25 12:21 70 16 02/16/25 12:03 70 19 100 02/16/25 12:02 106/51 L 02/16/25 12:02 106/51 L 02/16/25 11:21 70 21 98 02/16/25 11:21 70 16 98 02/16/25 11:21 70 12 108/69 98 02/16/25 11:17 108/69 02/16/25 11:15 70 14 98 02/16/25 11:13 86/53 L 02/16/25 11:13 86/53 L 02/16/25 11:13 86/53 L 02/16/25 11:13 98 02/16/25 11:13 37.0 C 71 13 116/56 L 97 02/16/25 11:11 70 02/16/25 11:09 116/56 L O2 Del Method O2 Flow Rate 02/16/25 14:27 02/16/25 14:15 02/16/25 14:06 02/16/25 14:03 02/16/25 14:03 02/16/25 14:03 02/16/25 13:45 02/16/25 13:42 02/16/25 13:30 02/16/25 13:00 02/16/25 13:00 02/16/25 12:51 02/16/25 12:45 02/16/25 12:34 02/16/25 12:33 02/16/25 12:21 02/16/25 12:03 02/16/25 12:02 02/16/25 12:02 02/16/25 11:21 02/16/25 11:21 Nasal Cannula 2 02/16/25 11:21 Nasal Cannula 2 02/16/25 11:17 02/16/25 11:15 02/16/25 11:13 02/16/25 11:13 02/16/25 11:13 02/16/25 11:13 Nasal Cannula 2 02/16/25 11:13 Nasal Cannula 2 02/16/25 11:11 02/16/25 11:09 Laboratory Results -personally reviewed, leukocytosis of 26 with strong left shift, creatinine 1.[address] on CKD, Mg of 1.6, elevated trop and BNP in setting of severe sepsis Medications Administered Acetaminophen (Acetaminophen 325 Mg Tab) 650 mg PO Q4H PRN PRN Reason: pain/fever Stop: 03/18/25 17:37 Last Admin: 02/16/25 18:13 Dose: 650 mg Documented By: JESSICA Lactated Ringer's (Lr) 1,000 mls @ 100 mls/hr IV .Q10H AMADO Stop: 02/17/25 00:00 Last Admin: 02/16/25 17:40 Dose: 100 mls/hr Documented By: JESSICA Code Status & VTE Plan Code Status -DNRDNI, discussed with patient at length in front of family VTE Prophylaxis Plan VTE Prophylaxis will be ordered: Yes
[2025-02-16 15:20] LABS: INR 1.5 (0.9-1.1); Prothrombin Time 16.0 Seconds (9.0-12.0)
--- NOTE | 2025-02-16 15:25 | Electrocardiogram Report ---
Test Reason : Blood Pressure : */* mmHG Vent. Rate : 70 BPM Atrial Rate : 89 BPM P-R Int : * ms QRS Dur : 152 ms QT Int : 460 ms P-R-T Axes : * 0 183 degrees QTcB Int : 496 ms Ventricular-paced rhythm Abnormal ECG When compared with ECG of 27-Nov-2024 12:10, No significant change was found Confirmed by Satish Roa ([id number]) on 02/16/2025 3:25:04 PM Referred By: REFERRED SELF Confirmed By: Satish Roa
[2025-02-16] MEDS ORDERED: ONDANSETRON INJ 2 MG/ML 2 ML VIAL IV PRN ×2 (16:15→17:38)
[2025-02-16] MEDS: PIPERACILLIN/TAZOBACTAM 4.5 GM/100 ML BAG IV ONE (16:33)
[2025-02-16] MEDS ORDERED: POLYETHYLENE (MIRALAX) 17 GM PACK PO PRN (17:38)
[2025-02-16] MEDS ORDERED: ALBUTEROL HFA 8 GM INHALER INH PRN (17:38)
[2025-02-16] MEDS ORDERED: BUPRENORPHINE TOP SCH (17:38)
[2025-02-16] MEDS: LACTATED RINGER'S 1,000 ML IV SCH (17:40)
[2025-02-16] MEDS: ACETAMINOPHEN 325 MG TAB PO PRN (18:13)
[2025-02-16] MEDS ORDERED: VANCOMYCIN CONSULT ACTIVE PRN (18:31)
[2025-02-16] MEDS ORDERED: GLUCOSE 10 TAB/TUBE PO PRN (18:41)
[2025-02-16] MEDS ORDERED: DEXTROSE 50% 50 ML SYRINGE IV PRN (18:41)
[2025-02-16] MEDS ORDERED: CARBOHYDRATES FOR HYPOGLYCEMIA PO PRN (18:41)
[2025-02-16] MEDS ORDERED: GLUCOSE 40% GEL 15 GM TUBE PO PRN (18:41)
[2025-02-16] MEDS ORDERED: GLUCAGON FOR INJ 1 MG VIAL SQ PRN (18:41)
[2025-02-16] MEDS: LACTATED RINGER'S 500 ML IV ONE (19:48)
[2025-02-16] MEDS: MAGNESIUM SULFATE / D5W 1 GM/100 ML BAG IV SCH (19:50)
[2025-02-16] MEDS: VANCOMYCIN HCL 1,500 MG in SODIUM CHLORIDE 0.9% 500 ML IV ONE (20:31)
[2025-02-16] MEDS: INSULIN ASPART PER UNIT CHARGE SC SCH (21:22)
[2025-02-16] MEDS: PIPERACILLIN/TAZOBACTAM 4.5 GM/100 ML BAG IV SCH (21:55)
[2025-02-17] MEDS: FUROSEMIDE INJ 20 MG/2 ML VIAL IV ONE (01:10)
[2025-02-17] MEDS: MAGNESIUM SULFATE / D5W 1 GM/100 ML BAG IV ONE (01:11)
[2025-02-17] MEDS: ALBUT/IPRATROP 3MG/0.5MG NEB 3 ML VIAL NEB STA (01:18)
[2025-02-17 02:10] LABS: iSTAT Art Bld Gas Base Excess 0.0 meg/L (-9-1.8)
--- NOTE | 2025-02-17 02:29 | XRay Report ---
EXAM: XR chest 1V portable CLINICAL HISTORY: low o2. TECHNIQUE: An X-ray image of the chest is obtained in AP projection. COMPARISON: No prior studies are available for comparison. FINDINGS: Pulmonary Parenchyma: Prominent hilar and basal pulmonary vasculature. Coarsened pulmonaty interstitum all-over both lung [place]. No evidence of consolidation, collapse, or focal opacities. No pulmonary nodules are identified. No evidence of pleural effusion or pleural thickening. Heart and Mediastinum: Cardiac size is enlarged. No mediastinal widening or masses. No hilar or mediastinal lymphadenopathy. Evidence of midline sternotomy suuttures. Bony Thorax: Bony thorax appears intact without fractures or deformities. Soft Tissues: Soft tissues overlying the chest wall are unremarkable. ECG leads and pacemaker are noted. IMPRESSION: 1. Pulmonary congestion. 2. Picture of interstitial lung disease. CT chest is advised. 3. Cardiomegaly. Echocardiography is recommended. Electronically signed by Og Bolaños 02-17-2025 02:14 AM
[2025-02-17 02:41] LABS: Hematocrit (blood only) 24.4 % (42.0-52.0); Hemoglobin 7.8 g/dl (14.0-18.0); Mean Corpuscular Hemoglobin 28.8 pg (25.0-34.0); Mean Corpuscular Volume 90.0 fL (80.0-100.0); Platelet Count 251 K/uL (130-400); RDW Standard Deviation 48.2 fL (36.4-46.3); Red Blood Count 2.71 M/uL (4.70-6.10); White Blood Count 26.83 K/ul (4.8-10.8)
[2025-02-17 02:59] LABS: Anion Gap 10.0 (3-11); Blood Urea Nitrogen 33.0 mg/dl (6-23); Calcium 8.6 mg/dl (8.6-10.3); Carbon Dioxide 25.0 mmol/L (21-32); Chloride 95.0 mmol/L (98-107); Creatinine Clr Calc Pharmacy 24.4 ml/min; Glucose 212.0 mg/dl (70-99(Fasting)); Magnesium 2.5 mg/dl (1.7-2.4); Potassium 4.6 mmol/L (3.5-5.1); Sodium 130.0 mmol/L (136-145)
[2025-02-17 03:14] LABS: Immature Granulocytes # (auto) 0.31 K/uL (0.01-0.20); Immature Granulocytes % (auto) 1.2 %; Ovalocytes 1+
[2025-02-17] MEDS: ALBUMIN 25% 12.5 GM/50 ML VIAL IV ONE (03:42)
--- NOTE | 2025-02-17 04:01 | Communication Note ---
Date of Service: February 17, 2025 Patient with worsening hypoxemia and respiratory distress overnight as per RN. Same cough symptoms. Lasix and neb treatment administered due to pulmonary congestion and imaging Code purple called due to increasing O2 requirement at one point. Hemoglobin 7.8 from 8.5 yesterday. No overt bleeding as per RN. Patient on Xarelto for A-fib. FOBT done at bedside negative. AP Progressive anemia Follow H&H, transfuse PRBC if hemoglobin less than 7 (Patient currently unable to sign consent for prospective blood transfusion due to mentation issues.)
[2025-02-17 05:47] LABS: A calco-baum cmplx NotReported Not Detected (NotDetected); Bact fragilis Not Reported Not Detected (NotDetected); Blood Culture Id Panel See PCR Comment (NotDetected); C auris Not Reported Not Detected (NotDetected); CTX-M Resistant Gene Not Detected (NotDetected); Calbicans Not Reported Not Detected (NotDetected); Candida glabrata Not Reported Not Detected (NotDetected); Candida krusei Not Reported Not Detected (NotDetected); Cneoformans/gatti Not Reported Not Detected (NotDetected); Cparapsilosis Not Reported Not Detected (NotDetected); Ctropicalis Not Reported Not Detected (NotDetected); E cloacae compx Not Reported Not Detected (NotDetected); Efaecalis Not Reported Not Detected (NotDetected); Efaecium Not Reported Not Detected (NotDetected); Enterobacterales DETECTED (NotDetected); Enterobacterales Not Reported DETECTED (NotDetected); Escherichia coli Not Reported Not Detected (NotDetected); H influenzae Not Reported Not Detected (NotDetected); IMP Resistant Gene Not Detected (NotDetected); K aerogenes Not Reported Not Detected (NotDetected); KPC Resistant Gene Not Detected (NotDetected); Koxytoca Not Reported Not Detected (NotDetected); Kpneumoniae grp Not Reported Not Detected (NotDetected); Lmonocyt Not Reported Not Detected (NotDetected); N meningitidis Not Reported Not Detected (NotDetected); NDM Resistant Gene Not Detected (NotDetected); OXA 48 Like Resistant Gene Not Detected (NotDetected); P aeruginosa Not Reported Not Detected (NotDetected); Proteus spp Not Reported DETECTED (NotDetected); Salmonella spp Not Reported Not Detected (NotDetected); Staph lugdunensis Not Reported Not Detected (NotDetected); Staph spp. Not Reported Not Detected (NotDetected); Staphaureus Not Reported Not Detected (NotDetected); Staphepi Not Reported Not Detected (NotDetected); Stenmaltophilia Not Reported Not Detected (NotDetected); Strep agal(GrpB) Not Reported Not Detected (NotDetected); Strep pneum Not Reported Not Detected (NotDetected); Strep pyog (GrpA) Not Reported Not Detected (NotDetected); Strep spp Not Reported Not Detected (NotDetected); VIM Resistant Gene Not Detected (NotDetected)
[2025-02-17 06:02] LABS: Hematocrit (blood only) 22.7 % (42.0-52.0); Hemoglobin 7.3 g/dl (14.0-18.0)
[2025-02-17 06:11] LABS: Proteus species DETECTED (NotDetected)
[2025-02-17] MEDS ORDERED: EZETIMIBE/SIMVASTATIN 10/40MG TAB PO SCH (09:00)
[2025-02-17] MEDS ORDERED: FUROSEMIDE 40 MG TAB PO SCH (09:00)
[2025-02-17] MEDS: MEROPENEM 500 MG in SYRINGE 0 ML IV SCH (09:03)
[2025-02-17] MEDS: TAMSULOSIN HCL 0.4 MG CAP PO SCH (09:04)
[2025-02-17] MEDS: ASPIRIN 81 MG ECTAB PO SCH (09:04)
[2025-02-17] MEDS: METOPROLOL SUCC 25MG EXT REL TAB PO SCH (09:04)
[2025-02-17] MEDS: SIMVASTATIN 40 MG TAB PO SCH (09:04)
--- NOTE | 2025-02-17 11:10 | Hospitalist Progress Note ---
<Statement entered by Benjamin Nobles, DO - 02/17/25 14:57> I have seen and examined the patient and have discussed the case with the advance practice provider. I have reviewed the advanced practitioner's documentation, and I agree with, and take responsibility for that plan of care. Patient evaluated earlier today. He states he does feel a little bit better than he did at the time of admission Moderately ill in appearance Lungs decreased, no rales or wheezes Reviewed microbiology Reviewed antibiotic plan Able to titrate oxygen down while in room Patient with severe sepsis and organ dysfunction secondary to gram-negative bacteremia from his UTI. I spent a total of 20 minutes coordinating, documenting, and providing care for this patient excluding time spent by another provider/QHP. Date of Service February 17, 2025 Assessment & Plan (1) Severe sepsis: (2) Pyelonephritis: (3) CKD stage 3a, GFR 45-59 ml/min: (4) DM type 2 (diabetes mellitus, type 2): (5) Chronic hypoxemic respiratory failure: (6) S/P cardiac pacemaker procedure: (7) Persistent atrial fibrillation: (8) Chronic HFrEF (heart failure with reduced ejection fraction): Plan 84 yo male with pmhx of chronic HFrEF (EF 40-45%), hx of DVT/PE (on xarelto), PAD, persistent atrial fibrillation s/p pacemaker placement, DM Type 2, chronic hypoxemic respiratory failure 2/2 pulmonary fibrosis (3L baseline), CKD stage 3a, HTN, HLD, DM type 2 who presents for lightheadedness, dizziness, nausea, vomiting 2/2 severe sepsis from pyelonephritis. #Gram negative bacteremia #Right Sided Pyelonephritis -patient had recent treatment for pyelonephritis a few weeks ago which seems to have progressed -meets severe sepsis criteria on admission due to Ct in setting of leukocytosis, fever, tachypnea with source (pyelonephritis) -last urine culture grew salas susceptible Proteus mirabilis, and coag negative staph, [place] [facility] [place]efpodox[place] -2/2 Preliminary blood cultures growing gram negative bacilli, urine culture pending -Continue Zosyn, follow sensitivities #Acute on chronic hypoxemic respiratory failure -> resolving # HFrEF - Fluids discontinued overnight due to worsening resp distress, code purple called. Overnight CXR showed pulmonary congestion - Received 20mg IV lasix x 1 - Saturating 93% on baseline 3L NC now, re-evaluate in AM for resuming 40mg PO daily lasix - Recent admission [place] [facility] and notable acute on chronic HFrEF -see HPI for details. Discharged on 40mg Lasix, Entresto held due to hypotension. Continue Toprol, statin - Strict I&Os, low sodium diet, daily weights - Consider cardiology consult if no improvement #Type 2 OR #Chronic HFrEF (EF 40%) -No chest pain. Suspect elevated troponin in setting of severe sepsis -HS troponin 48.9 -> 55.7 with repeat pending this afternoon -Continue home meds #Chronic Hypoxemic Respiratory Failure #Pulmonary Fibrosis -on 3L chronically, weaned back to baseline #TC on CKD Stage 3a -In setting of severe sepsis as above - Cr 1.81 -> 2.31 overnight - Per Epic, baseline Cr mid 1s but has been mid 1s- low 2s all January - Volume status improved this AM. Continue close monitoring, consider nephrology consult if no improvement tmrw #Chronic Normocytic Anemia #Non-bleeding gastric ulcer on EGD/colonoscopy [place] mid[place] [facility] - hgb 8.9 on discharge day 01/29 Started on omeprazole 40 mg twice daily with GI follow-up in 6 to 8 weeks for repeat EGD Hgb 8.5 -> 7.1 overnight. No acute bleeding reported, suspect dilutional component as well Repeat H&H this afternoon- if hgb drop, will consider holding Xarelto #Hx of DVT/PE -continue xarelto #Persistent Atrial Fibrillation s/p Pacemaker Placement -continue Toprol, Xarelto (renally dosed at 15mg) #DM Type 2 -SSI ordered - BSG ACHS DVT Ppx: Xarelto Code status: DNR/DNI PCP: [place] Dispo: Admitted to [facility] Patient seen in collaboration with Dr. Nobles. Please see addendum. I spent a total of 50 minutes coordinating, documenting, and providing care for this patient excluding time spent in the performance of separately billed services or time spent by another provider/QHP. Admission and Anticipated Discharge Date Admission Date: February 16, 2025 Subjective Seen and examined in 289 bed 2. Resting comfortably, eating his breakfast. Feels comfortable although worn out. Has continued to have dysuria since discharge from [place] with Proteus UTI. States that he did complete 5d PO antibiotic he was discharged on. Of note, chart reviewed regarding recent [place] [facility] [place]- for worsening anemia as well as shortness of breath. Hemoglobin was 8.2 and EGD/colonoscopy were performed, revealing nonbleeding gastric ulcer. Started on omeprazole 40 mg twice daily with GI follow-up in 6 to 8 weeks for repeat EGD. Was also treated for acute HFrEF. Has historically followed with [facility] for cardiology. During admission at [facility], diuresed 7 pounds and was discharged home on Lasix 40 mg daily. Entresto was held at discharge due to hypotension. Was found during hospitalization to have UTI and discharged on 5-day course of cefpodoxime. Urine culture grew out Proteus, coag-negative staph. Proteus sensitive to cephalosporins. Blood cultures negative. Review of Systems Review of Systems: At least ten systems reviewed and negative except as noted in the HPI. Physical Exam Physical Exam: Gen: WD/WN, NAD, sitting upright in bed, eating breakfast, A&Ox3 HEENT: Normocephalic, atraumatic, mucous membranes moist Lung: Diminished breath sounds Heart: Regular rate, regular rhythm, no BLE edema Abdomen: Soft, NT, ND +BS x 4 Skin: Warm, no rash Results & Data Results & Data Vital Signs (Past 12 Hours) Vital Signs Temp Pulse Pulse Pulse Resp BP Pulse Ox 02/17/25 08:16 02/17/25 07:49 37.0 C 70 20 106/58 L 100 02/17/25 04:03 65 02/17/25 03:36 38.1 C H 70 20 109/65 100 02/17/25 01:18 02/17/25 00:33 37.2 C 81 20 113/68 95 O2 Del Method O2 Flow Rate 02/17/25 08:16 Nasal Cannula 4 02/17/25 07:49 Oxymask 5 02/17/25 04:03 02/17/25 03:36 Oxymask 4 02/17/25 01:18 Oxymask 8 02/17/25 00:33 Nasal Cannula 4 Laboratory Results Short CBC 02/17/25 02/17/25 Range/Units 02:23 05:37 WBC 26.83 H (4.8-10.8) K/ul Hgb 7.8 L 7.3 L (14.0-18.0) g/dl Hct 24.4 L 22.7 L (42.0-52.0) % Plt Count 251 (130-400) K/uL BMP 02/16/25 02/17/25 12:20 02:23 Sodium 134 L 130 L Potassium 4.7 4.6 Chloride 99 95 L Carbon Dioxide 29 25 BUN 27 H 33 H Creatinine 1.81 H 2.31 H D Glucose 161 H 212 H Calcium 9.1 8.6 Liver Function 02/16/25 Range/Units 12:20 Total Bilirubin 0.6 (0.2-1.0) mg/dl AST 22 (13-39) U/L ALT 12 (7-52) U/L Alkaline Phosphatase 34 (34-104) U/L Albumin 3.4 (3.4-5.0) gm/dl Urine 02/16/25 Range/Units 14:00 Urine Color Yellow Urine Appearance Turbid A (Clear) Urine pH 7.5 (4.5-7.5) Ur Specific [place] 1.038 H (1.000-1.030) Urine Protein 2+ H (Negative) Urine Glucose (UA) Negative (Negative) Diagnostic Findings Chest X-Ray 02/16/25 11:13 XR chest 2V PA/lateral CLINICAL HISTORY: Dyspnea COMPARISON STUDY: 11/27/2024 FINDINGS: There are postsurgical changes of midline sternotomy. The heart remains enlarged. 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 There is no focal pulmonary consolidation. There is slight improvement in interstitial thickening suggesting mild improvement in the pre viously identified interstitial edema. IMPRESSION: Mild improvement in the previously described mild congestive failure. No evidence of focal pulmonary consolidation. ACT 112: Negative or not required by law. Electronically signed by: Rich Chau M.D. 02/16/2025 12:12 PM Abdomen/Pelvis CT 02/16/25 12:53 CT SCAN OF THE ABDOMEN AND PELVIS WITH IV CONTRAST CLINICAL HISTORY: Sepsis. Recent colonoscopy. COMPARISON STUDY: No priors. TECHNIQUE: Following the IV administration of 92 cc of Optiray 320, CT scan of the abdomen and pelvis is performed from the lung bases to the proximal femora. Images are reviewed in the axial, sagittal, and coronal planes. IV contrast was administered without complication. A dose lowering technique was utilized adhering to the principles of ALARA. There is streak artifact from the arms which could not be elevated above the abdomen. CT DOSE: 1879.69 mGy.cm FINDINGS: Lung bases: The patient is status post midline sternotomy. The heart is enlarged and without pericardial effusion. Pacemaker leads are in place. The coronary arteries are densely calcified. Myocardial fat deposition within the left vent ricle suggest prior study. There is a small hiatal hernia. Emphysematous change is suspected. There are trace pleural effusions with dependent scarring/atelectasis. There is no airspace consolidation typical for pneumonia. Liver: The contrast-enhanced liver is normal in size, contour, and attenuation. There is no intrahepatic biliary ductal dilatation. The hepatic veins and portal veins are patent. Gallbladder: Unremarkable. Spleen: Normal in size and attenuation. Pancreas: Mildly atrophic and grossly unremarkable. Adrenal glands: Unremarkable. Kidneys: The contrast enhanced kidneys are normal in size and without hydronephrosis. The kidneys enhance symmetrically. There is asymmetric right- sided perinephric stranding as compared to the left. Abdominal vasculature: There is advanced atherosclerotic calcification and ectasia of the abdominal aorta. Bowel: There is mild colonic diverticulosis without CT evidence of acute diverticulitis. Mild fecal retention is noted throughout the colon. There is no bowel obstruction. A segment of the sigmoid colon is contained within a left inguinal hernia. The appendix is well-visualized and normal. Peritoneum: There is no intraperitoneal free air or abdominal ascites. There is a fat-containing umbilical hernia. Lymphadenopathy: None. Pelvic viscera: The prostate gland is mildly enlarged and heterogeneous. The bladder wall appears thickened/trabeculated indicating chronic outlet obstruction. There are bilateral inguinal hernias, left larger than right. The left inguinal hernia contains a segment of the sigmoid colon. Skeletal structures: The skeletal structures are osteopenic. There is moderate lumbosacral spondylosis. Degenerative change is seen in the sacroiliac joints. No lytic or blastic lesions are seen. IMPRESSION: 1. There is nonspecific asymmetric right-sided perinephric stranding. Correlate with clinical findings and urinalysis. 2. No intraperitoneal free air is seen. 3. Cardiomegaly and cardiac pacemaker. 4. Trace pleural effusions. 5. Left larger than right inguinal hernias. The left inguinal hernia contains a segment of the sigmoid colon. 6. Additional findings as above. ACT 112: Negative or not required by law. Electronically signed by: Merritt Heaton M.D. 02/16/2025 1:32 PM Chest X-Ray 02/17/25 01:38 EXAM: XR chest 1V portable CLINICAL HISTORY: low o2. TECHNIQUE: An X-ray image of the chest is obtained in AP projection. COMPARISON: No prior studies are available for comparison. FINDINGS: Pulmonary Parenchyma: Prominent hilar and basal pulmonary vasculature. Coarsened pulmonaty interstitum all-over both lung [place]. No evidence of consolidation, collapse, or focal opacities. No pulmonary nodules are identified. No evidence of pleural effusion or pleural thickening. Heart and Mediastinum: Cardiac size is enlarged. No mediastinal widening or masses. No hilar or mediastinal lymphadenopathy. Evidence of midline sternotomy suuttures. Bony Thorax: Bony thorax appears intact without fractures or deformities. Soft Tissues: Soft tissues overlying the chest wall are unremarkable. ECG leads and pacemaker are noted. IMPRESSION: 1. Pulmonary congestion. 2. Picture of interstitial lung disease. CT chest is advised. 3. Cardiomegaly. Echocardiography is recommended. Electronically signed by Og Bolaños 02-17-2025 02:14 AM
[2025-02-17] MEDS: PIPERACILLIN/TAZOBACTAM 4.5 GM/100 ML BAG IV SCH (13:17)
[2025-02-17 14:15] LABS: Hematocrit (blood only) 24.5 % (42.0-52.0); Hemoglobin 7.7 g/dl (14.0-18.0)
[2025-02-17] MEDS: EZETIMIBE 10 MG TAB PO SCH (15:49)
[2025-02-17] MEDS: RIVAROXABAN 15 MG TAB PO SCH (17:36)
[2025-02-17] MEDS: SODIUM CHLORIDE 0.9% 500 ML IV ONE (18:04)
[2025-02-17] MEDS: REMOVE & WASTE BUTRANS PATCH 1 EA EA SCH (18:06)
[2025-02-17] MEDS: BUPRENORPHINE 10 MCG/HR TDSY TD SCH (18:35)
[2025-02-17] MEDS: LORazepam 1 MG TAB PO PRN (22:19)
[2025-02-18 07:28] LABS: Hematocrit (blood only) 25.3 % (42.0-52.0); Hemoglobin 7.7 g/dl (14.0-18.0); Mean Corpuscular Hemoglobin 27.8 pg (25.0-34.0); Mean Corpuscular Volume 91.3 fL (80.0-100.0); Platelet Count 215 K/uL (130-400); RDW Standard Deviation 50.1 fL (36.4-46.3); Red Blood Count 2.77 M/uL (4.70-6.10); White Blood Count 18.36 K/ul (4.8-10.8)
[2025-02-18 07:44] LABS: Anion Gap 7.0 (3-11); Blood Urea Nitrogen 36.0 mg/dl (6-23); Calcium 9.0 mg/dl (8.6-10.3); Carbon Dioxide 30.0 mmol/L (21-32); Chloride 97.0 mmol/L (98-107); Creatinine Clr Calc Pharmacy 21.5 ml/min; Glucose 98.0 mg/dl (70-99(Fasting)); Potassium 4.1 mmol/L (3.5-5.1); Sodium 134.0 mmol/L (136-145)
[2025-02-18] MEDS ORDERED: REMOVE & WASTE BUTRANS PATCH 1 EA EA SCH (08:59)
[2025-02-18] MEDS ORDERED: BUPRENORPHINE 10 MCG/HR TDSY TD SCH (09:00)
--- NOTE | 2025-02-18 14:28 | Hospitalist Progress Note ---
Date of Service February 18, 2025 Assessment & Plan (1) Severe sepsis with acute organ dysfunction due to Gram negative bacteria: (2) Acute kidney injury (CT) with acute tubular necrosis (ATN): (3) E coli bacteremia: (4) E. coli UTI: (5) Pyelonephritis: (6) Chronic hypoxic respiratory failure, on home oxygen therapy: (7) Chronic HFrEF (heart failure with reduced ejection fraction): (8) CKD stage 3a, GFR 45-59 ml/min: (9) DM type 2 (diabetes mellitus, type 2): (10) Persistent atrial fibrillation: (11) HTN (hypertension): (12) History of pacemaker: (13) Pulmonary interstitial fibrosis: Plan Patient with severe sepsis and acute organ dysfunction due to E. coli bacteremia from UTI/pyelonephritis. Patient is showing some evidence of improving with improved WBCs Kidney function progressing, suspect ATN due to sepsis, continue supportive care, avoid nephrotoxins, monitor renal function Urine sensitivities noted, blood culture sensitivities are pending, continue current antibiotics, narrow when sensitivities resulted from blood cultures Continue to monitor glucose, cover with insulin Continue oxygen support 3L at home IV fluid hydration for renal dysfunction Bladder scan for postvoid residual, insert Salgado if greater than 40 cc, reviewed CT imaging, there is some evidence of chronic bladder outlet obstruction. No hydronephrosis. Need to ensure renal dysfunction not due to obstruction. ok [employer] Phone call to patient's , no answer Admission and Anticipated Discharge Date Admission Date: February 16, 2025 Subjective Patient states he is feeling a little bit better. No chest pain or shortness of breath. Reports he is chronically on oxygen at home Physical Exam Physical Exam: Constitutional: Alert, less toxic in appearance HEENT: Mucous membranes moist. Lungs: Decreased breath sounds, fine crackles throughout CV: S1-S2, irregular Abdomen: Soft, nontender, nondistended Extremities: No significant edema Neuro: No focal deficits, generally weak Psych: Cooperative, normal mood Results & Data Results & Data Vital Signs (Past 12 Hours) Vital Signs Temp Pulse Pulse Resp BP Pulse Ox O2 Del Method 02/18/25 13:45 Nasal Cannula 02/18/25 11:29 37.1 C 71 20 109/68 100 Nasal Cannula 02/18/25 07:44 69 02/18/25 07:38 36.7 C 70 20 123/72 100 Nasal Cannula 02/18/25 03:26 36.7 C 72 18 120/67 100 Nasal Cannula O2 Flow Rate 02/18/25 13:45 4 02/18/25 11:29 3 02/18/25 07:44 02/18/25 07:38 2 02/18/25 03:26 4 Diagnostic Findings Reviewed imaging, laboratory and diagnostic studies. Pertinent findings as below. WBCs 18.3, improved Hemoglobin 7.7, stable Sodium 134 Creatinine 2.62, increasing
[2025-02-18] MEDS: SODIUM CHLORIDE 0.9% 500 ML IV SCH (16:28)
[2025-02-19 07:32] LABS: Hematocrit (blood only) 25.3 % (42.0-52.0); Hemoglobin 7.9 g/dl (14.0-18.0); Mean Corpuscular Hemoglobin 28.5 pg (25.0-34.0); Mean Corpuscular Volume 91.3 fL (80.0-100.0); Platelet Count 204 K/uL (130-400); RDW Standard Deviation 49.5 fL (36.4-46.3); Red Blood Count 2.77 M/uL (4.70-6.10); White Blood Count 10.20 K/ul (4.8-10.8)
[2025-02-19 07:52] LABS: Anion Gap 7.0 (3-11); Blood Urea Nitrogen 36.0 mg/dl (6-23); Calcium 9.0 mg/dl (8.6-10.3); Carbon Dioxide 28.0 mmol/L (21-32); Chloride 101.0 mmol/L (98-107); Creatinine Clr Calc Pharmacy 22.2 ml/min; Glucose 106.0 mg/dl (70-99(Fasting)); Magnesium 2.5 mg/dl (1.7-2.4); Potassium 3.8 mmol/L (3.5-5.1); Sodium 136.0 mmol/L (136-145)
--- NOTE | 2025-02-19 10:56 | Hospitalist Progress Note ---
Date of Service February 19, 2025 Assessment & Plan (1) Severe sepsis with acute organ dysfunction due to Gram negative bacteria: (2) Acute kidney injury (CT) with acute tubular necrosis (ATN): (3) E coli bacteremia: (4) E. coli UTI: (5) Pyelonephritis: (6) Chronic hypoxic respiratory failure, on home oxygen therapy: (7) Chronic HFrEF (heart failure with reduced ejection fraction): (8) CKD stage 3a, GFR 45-59 ml/min: (9) DM type 2 (diabetes mellitus, type 2): (10) Persistent atrial fibrillation: (11) HTN (hypertension): (12) History of pacemaker: (13) Pulmonary interstitial fibrosis: Plan Patient with E. coli bacteremia and sepsis due to urinary tract infection, steadily improving. Patient's ATN is improving with some mild hydration. Continue some gentle IV hydration, despite increasing BNP does not look to be volume overloaded and is asymptomatic. Renal function seems to be improving with some hydration Narrow antibiotics to ampicillin sulbactam based on sensitivities Continue therapies Continue to monitor electrolytes and renal function Continue chronic anticoagulation and metoprolol for atrial fibrillation Admission and Anticipated Discharge Date Admission Date: February 16, 2025 Subjective Patient is feeling better, strength is improving. Little bit of shortness of breath with Activity but this is about his baseline. Physical Exam Physical Exam: Constitutional: Alert, nontoxic, less ill in appearance HEENT: Mucous membranes moist. Lungs: Decreased breath sounds, fine crackles throughout, no definitive rales CV: S1-S2, irregular Abdomen: Soft, nontender, nondistended Extremities: No significant edema Neuro: No focal deficits, generally weak Psych: Cooperative, normal mood Results & Data Results & Data Vital Signs (Past 12 Hours) Vital Signs Temp Pulse Resp BP Pulse Ox O2 Del Method O2 Flow Rate 02/19/25 07:35 36.3 C L 71 16 124/74 100 Nasal Cannula 3 02/18/25 23:14 37.1 C 66 18 127/71 96 Nasal Cannula 4 Diagnostic Findings Reviewed imaging, laboratory and diagnostic studies. Pertinent findings as below. Reviewed blood culture sensitivities BNP 1034 Magnesium 2.5 Creatinine 2.54, slightly improved WBCs 10.2, improved Hemoglobin 7.9 stable
[2025-02-19] MEDS: SODIUM CHLORIDE 0.9% 1,000 ML IV SCH (11:21)
[2025-02-19] MEDS: AMPICILLIN/SULBACTAM SOD 3,000 MG/100 ML BAG IV SCH ×2 (11:24→18:24)
[2025-02-20 07:35] LABS: Anion Gap 7.0 (3-11); Blood Urea Nitrogen 31.0 mg/dl (6-23); Calcium 8.4 mg/dl (8.6-10.3); Carbon Dioxide 27.0 mmol/L (21-32); Chloride 105.0 mmol/L (98-107); Creatinine Clr Calc Pharmacy 29.0 ml/min; Glucose 100.0 mg/dl (70-99(Fasting)); Potassium 4.1 mmol/L (3.5-5.1); Sodium 139.0 mmol/L (136-145)
--- NOTE | 2025-02-20 11:41 | Hospitalist Progress Note ---
Date of Service February 20, 2025 Assessment & Plan (1) Severe sepsis with acute organ dysfunction due to Gram negative bacteria: (2) Acute kidney injury (CT) with acute tubular necrosis (ATN): (3) E coli bacteremia: (4) E. coli UTI: (5) Pyelonephritis: (6) Chronic hypoxic respiratory failure, on home oxygen therapy: (7) Chronic HFrEF (heart failure with reduced ejection fraction): (8) CKD stage 3a, GFR 45-59 ml/min: (9) DM type 2 (diabetes mellitus, type 2): (10) Persistent atrial fibrillation: (11) HTN (hypertension): (12) History of pacemaker: (13) Pulmonary interstitial fibrosis: Plan Patient steadily improving from bacteremia. Renal function is improving Saline lock IV fluids Continue IV antibiotics Encouraged activity and mobility on phone during my visit and updated Told patient and to anticipate possible discharge home tomorrow on oral an tibiotics Communication with case management to coordinate home health care Admission and Anticipated Discharge Date Admission Date: February 16, 2025 Subjective Patient feeling a little bit better each day. Determined to go home. on the phone during my visit. Physical Exam Physical Exam: Constitutional: Alert, nontoxic HEENT: Mucous membranes moist. Lungs: Decreased, prolonged, crackles throughout CV: S1-S2, irregular Abdomen: Soft, nontender, nondistended Extremities: No significant edema Neuro: No focal deficits, weak Psych: Cooperative, normal mood Results & Data Results & Data Vital Signs (Past 12 Hours) Vital Signs Temp Pulse Resp BP Pulse Ox O2 Del Method O2 Flow Rate 02/20/25 07:55 Nasal Cannula 3 02/20/25 07:32 36.5 C 70 18 110/52 L 100 Nasal Cannula 3 Diagnostic Findings Reviewed imaging, laboratory and diagnostic studies. Pertinent findings as below. Creatinine 1.94, continuing to improve Glucose reviewed Electrolytes stable
[2025-02-21 06:16] LABS: Hematocrit (blood only) 23.9 % (42.0-52.0); Hemoglobin 7.4 g/dl (14.0-18.0); Mean Corpuscular Hemoglobin 28.1 pg (25.0-34.0); Mean Corpuscular Volume 90.9 fL (80.0-100.0); Platelet Count 239 K/uL (130-400); RDW Standard Deviation 49.1 fL (36.4-46.3); Red Blood Count 2.63 M/uL (4.70-6.10); White Blood Count 10.33 K/ul (4.8-10.8)
[2025-02-21 06:32] LABS: Anion Gap 4.0 (3-11); Blood Urea Nitrogen 27.0 mg/dl (6-23); Calcium 8.4 mg/dl (8.6-10.3); Carbon Dioxide 27.0 mmol/L (21-32); Chloride 105.0 mmol/L (98-107); Creatinine Clr Calc Pharmacy 32.4 ml/min; Glucose 121.0 mg/dl (70-99(Fasting)); Potassium 4.1 mmol/L (3.5-5.1); Sodium 136.0 mmol/L (136-145)
--- NOTE | 2025-02-21 11:25 | Discharge Summary ---
Discharge Summary Date of Service February 21, 2025 Principal Dx & Hospital Course #1 = Principal Diagnosis (1) Severe sepsis with acute organ dysfunction due to Gram negative bacteria: (2) Acute kidney injury (CT) with acute tubular necrosis (ATN): (3) E coli bacteremia: (4) E. coli UTI: (5) Pyelonephritis: (6) Chronic hypoxic respiratory failure, on home oxygen therapy: (7) Chronic HFrEF (heart failure with reduced ejection fraction): (8) CKD stage 3a, GFR 45-59 ml/min: (9) DM type 2 (diabetes mellitus, type 2): (10) Persistent atrial fibrillation: (11) HTN (hypertension): (12) History of pacemaker: (13) Pulmonary interstitial fibrosis: Plan Patient 84-year-old gentleman on chronic oxygen due to pulmonary fibrosis and decreased ejection fraction presented to the emergency room with lightheadedness, nausea and vomiting. The patient had just been recently discharged from [facility] for a urinary tract infection which was treated with oral antibiotics. In the emergency department had significantly elevated WBCs and imaging consistent with pyelonephritis. Additionally patient had acute kidney injury. Patient was admitted to the hospital. Placed on antibiotics based on previous culture. Nephrotoxins were held and given IV fluid resuscitation. Patient's urine culture grew out Proteus mirabilis which is what he had previously that was pansensitive. However also now blood cultures g rew out the same. Blood culture also grew actinobacter, question if this is a contaminant versus true infection. Microbiology lab reported that they had several cultures that grew this somewhat unusual bacteria. With that being said he was treated with antibiotics to cover both the actinobacter and Proteus. With this intervention patient's severe sepsis significantly improved. His renal function steadily improved with hydration and holding nephrotoxins and improvement of his sepsis. He was maintained on his usual oxygen flow. Echocardiogram was performed which did not show any type of vegetation. Ejection fraction was unchanged. The patient strength returned. And patient and family are committed to taking him home. On the day of discharge his vital signs are stable. His WBCs have normalized. His hemoglobin is stable. His creatinine was showing steadily improvement. He can be transition to oral antibiotics and discharged home to follow-up with his outpatient providers. R eviewing medications with the patient at the time of discharge instructed him to discontinue his Entresto. He noted that he had just started the Entresto. Entresto in addition to his sepsis could be because for his acute kidney injury. Instructed him to discuss with his providers whether he should restart that. Notes For Next Care Provider Consider checking basic metabolic profile in 7 to 10 days Ongoing evaluation if patient should be restarted on Entresto Medication Changes From Visit Entresto discontinued Augmentin for 10 more days Admission HPI Per Admitting Provider 84 yo male with pmhx of chronic HFrEF (EF 40-45%), hx of DVT/PE (on xarelto), PAD, persistent atrial fibrillation s/p pacemaker placement, DM Type 2, chronic hypoxemic respiratory failure 2/2 pulmonary fibrosis (3L baseline), CKD stage 3a, HTN, HLD, DM type 2 who presents for lightheadedness, dizziness, nausea, vomiting. Had recent admission for pyelonephritis at [facility], sent home with oral abx. In the ED, WBC of 25, abdominal imaging showing pyelonephritis, elevated creatinine, elevated troponin and BNP, UA very concenring for UTI (no catheter), admitted to medicine for further workup. Patient seen and examined at bedside. Patient not doing well today. Has been having bilateral back pain, lightheaded, dizziness, nausea and vomiting for past few days. Ever since discharge from [facility] he has been getting more lethargic. No burning with urination but increased frequency of urination. Patient barely able to get up this morning. Patient normally does not have nausea or vomiting. Had had some SOB recently but no chest pain. No tobacco use, no drug use, no alcohol use, DNRDNI per patient wishes (discussed directly with patient with family in room) Admission Exam Per Admitting Provider See H&P Discharge Exam Constitutional: Alert, nontoxic HEENT: Mucous membranes moist. Lungs: Decreased, fine crackles, chronic CV: S1-S2, irregular Abdomen: Soft, nontender, nondistended Extremities: No significant edema Neuro: No focal deficits Psych: Cooperative, normal mood Updated Medication List Medication Instructions Recorded Confirmed Type albuterol sulfate 90 mcg/actuation 2 puff inhalation Q6H PRN sob 02/16/2502/16 History aerosol inhaler buprenorphine 20 mcg/hour weekly 1 patch topical WK 02/16/25 02/16/25 History transdermal patch duloxetine 60 mg capsule,delayed 60 mg PO DAILY 02/16/25 02/16/25 History release ezetimibe 10 mg-simvastatin 40 mg 1 tab PO DAILY 02/16/25 02/16/25 History tablet furosemide 40 mg tablet 40 mg PO DAILY 02/16/25 02/16/25 History lorazepam 1 mg tablet 1 mg PO TID PRN anxiety 02/16/25 02/16/25 History metformin 500 mg tablet,extended 1,000 mg PO DAILY 02/16/25 02/16/25 History release 24 hr metoprolol succinate 25 mg 25 mg PO DAILY 02/16/25 02/16/25 History tablet,extended release 24 hr nitroglycerin 0.4 mg sublingual 0.4 mg sublingual DIRECTED PRN 02/16/25 02/16/25 History tablet Chest Pain omeprazole 40 mg capsule,delayed 40 mg PO BID 02/16/25 02/16/25 History release rivaroxaban 20 mg tablet (Xarelto) 20 mg PO DAILY 02/16/25 02/16/25 History tamsulosin 0.4 mg capsule 0.4 mg PO DAILY 02/16/25 02/16/25 History aspirin 81 mg capsule 81 mg PO DAILY 02/17/25 02/17/25 History amoxicillin 875 mg-potassium 1 tab PO BID #20 tabs 02/21/25 Rx clavulanate 125 mg tablet Hospital Stay Data Consultations 02/16/25 15:00 ED Decision to Admit Stat Diagnostic Imagining Performed 02/16/25 12:53 CT Abd and Pelvis [CT abd pelvis IV con only] Stat Reviewed imaging, laboratory and diagnostic studies. Pertinent findings as below. Urine and blood cultures grew out Proteus mirabilis, pansensitive WBCs 10.3 Hemoglobin 7.4 Platelets of 239 Creatinine 1.74, significantly improved Other electrolytes stable Chest x-ray showed some chronic interstitial lung disease CT of the abdomen pelvis consistent with right-sided perinephric stranding and pyelonephritis. Some trace pleural effusions. Pending Results Patient Have Any Pending Studies at Discharge: No Discharge Instructions Given to Patient (Per Discharging Provider) You had a blood infection that initially started in your urine. Complete course of antibiotics Continue to wear your oxygen as previously at home Discuss with your PCP monitoring of your renal function Discussed with your PCP/director decision support when it may be reasonable to resume your Entresto Total Time Total Time Spent Total Time Spent (In Minutes): 38
== END 2025-02-21 11:12 | disposition home health service (06) | DRG 871 ==
LOC: ED 11:04 → SUATTDRO 15:03 → 2N 15:03 → 3W 02-18 20:39